=== PATIENT | female | born 1945 ===

== ENCOUNTER → 2020-03-12 14:45 | Outpatient (CLI) | payer MEDICARE, SELFPAY ==
--- NOTE | ~2020-03-12 | XR_ITS ---
EXAMINATION: XR forearm LT 2V DATE: 03/12/2020 15:18 INDICATION: Left wrist pain and swelling. TECHNIQUE: 2 views of left forearm were obtained. COMPARISON: None. FINDINGS: Bone alignment is normal. No fracture. There is mild osteoarthritis of triscaphe joint and moderate osteoarthritis of first carpometacarpal joint. No elbow joint effusion. IMPRESSION: 1. No fracture. Reviewed, dictated and finalized at location B. MECHANIC IMPRESSION: 1. No fracture.
--- NOTE | ~2020-03-12 | XR_ITS ---
EXAMINATION: XR wrist LT min 3V DATE: 03/12/2020 15:17 INDICATION: Left wrist pain and swelling. TECHNIQUE: 4 views of left wrist were obtained. COMPARISON: None. FINDINGS: Bone alignment is normal. No fracture. There is mild osteoarthritis of the radiocarpal join ts and triscaphe joint and moderate osteoarthritis of first carpometacarpal joint. IMPRESSION: 1. Polyarticular osteoarthritis. Reviewed, dictated and finalized at location B. BUYER
== END ==
PROVIDERS: PCP Internal Medicine; Visit Provider Internal Medicine
DX: M19.032 Primary osteoarthritis, left wrist (principal)
CPT/HCPCS: 73090; 73110

== ENCOUNTER 2021-02-20 16:08 | Inpatient (IN) | payer MEDICARE, SELFPAY ==
[2021-02-20] VITALS (27 sets, daily range): BP systolic 129–153; BP diastolic 50–95; PULSE 72–100; RESP 15–26; TEMP 36.3–36.5; O2SAT 91–100
--- NOTE | ~2021-02-20 | CT_ITS ---
EXAMINATION: CTA BRAIN/CAROTID DATE: 02/20/2021 19:32 INDICATION: Falls. Altered mental status. Confusion. TECHNIQUE: Computed tomographic angiography (CTA) of the head and neck was performed with 100 mL Omni paque-350 intravenous contrast. Multiplanar reconstructions and maximum intensity projection 3D-recon structions of the carotid arteries and of the intracranial arteries were created by the technologist on a separate workstation. Precontrast CT of the head was also obtained. Automated exposure control and iterative reconstruction technique were employed.The dose-length product was 1596.59 mGy-cm. COMPARISON: None. FINDINGS: Carotid arteries: There is 30% stenosis of the right carotid bulb relative to normal distal artery lumen diameter (NASC ET criteria). There is 35% stenosis of the left carotid bulb relative to normal distal artery lumen d iameter. Both the left and right cervical internal carotid arteries are tortuous. Right vertebral art he is dominant. Cervical soft tissues and superior mediastinum are unremarkable. Visual is airway an d upper lungs are clear. Mild cervical spondylosis with moderate to severe facet osteoarthritis on th e left including posterior fusion at C4-C5 and mild to moderate right-sided cervical facet osteoarthr itis. Vertebral body heights are normal. No fractures. Head: No fracture. No acute intracranial hemorrhage, acute infarction or abnormal extra axial fluid collect ion. Small old lacunar infarct left frontal lobe rojas radiata along side the body of the caudate nu cleus. There is moderate scattered white matter hypoattenuation consistent with chronic small vessel ischemic disease. Ventricles are normal and symmetric. No mass/mass effect. The orbits, paranasal si nuses and mastoid air cells are normal. No abnormally enhancing brain lesions identified. Intracranial arteries There is prominent motion artifact at the level of the third ventricle, above the level of the [place] which significantly limits assessment for aneurysm or stenosis in many of the more periphe ral cerebral arteries . Atherosclerotic calcifications without significant stenosis at the bilateral carotid siphons and at the dominant intracranial right vertebral artery. There is no hemodynamically significant stenosis in the vertebral, basilar and internal carotid arteries. There are no aneurysms identified. Both A1 and P1 segments are patent. IMPRESSION: 1. 30% stenosis of the right carotid bulb relative to normal distal artery lumen diameter (NASCET cri teria). 2. 35% stenosis of the left carotid bulb relative to normal distal artery lumen diameter. 3. No fracture or acute intracranial process. 4. Mild nonhemodynamically significant atherosclerotic plaque at the intracranial right vertebral art he and bilateral carotid siphons. Otherwise unremarkable cerebral CT angiogram aside from significan t motion artifact above level of the [place] which doesn't significantly limit evaluation of the more peripheral cerebral arteries at this level. Reviewed, dictated and finalized at location A. ROUTE CONTROLLER IMPRESSION: 1. 30% stenosis of the right carotid bulb relative to normal distal artery lume n diameter (NASCET criteria). 2. 35% stenosis of the left carotid bulb relative to normal distal artery lumen diameter. 3. No fracture or acute intracranial process. 4. Mild nonhemodynamically significant atherosclerotic plaque at the intracrani al right vertebral artery and bilateral carotid siphons. Otherwise unremarkable cerebral CT angiogram aside from significant motion artifact above level of th e [place] which doesn't significantly limit evaluation of the more per ipheral cerebral arteries at this level.
--- NOTE | ~2021-02-20 | MR_ITS ---
EXAMINATION: MR brain/brain stem wo con DATE: 02/21/2021 12:33 INDICATION: Confusion. TECHNIQUE: Magnetic resonance imaging (MRI) of the brain and brainstem was performed without intraven ous contrast. Sequences included sagittal and axial T1-weighted FSE, axial diffusion-weighted FS EPI, axial T2*-weighted GRE, axial T2-weighted FLAIR Propeller, and axial T2-weighted Propeller. Apparent diffusion coefficient (ADC) maps were created. COMPARISON: Brain MRI 10/13/2011, head CT 02/20/2021 FINDINGS: There is an acute infarct involving the right basal ganglia and internal capsule. There are old infarcts involving the left basal ganglia and internal capsule. There are scattered areas of non specific increased T2-weighted signal intensity in the cerebral white matter and corby. There is no in tracranial hemorrhage or abnormal mass lesion. The ventricles are normal in size. The orbits are norm al. There is mild mucosal thickening in the ethmoid sinuses. The mastoid air cells are normal. IMPRESSION: 1. Acute infarct involving the right basal ganglia and right internal capsule. 2. Old infarcts involving the left basal ganglia and left internal capsule. 3. Extensive nonspecific cerebral white matter disease and pontine disease, which likely represents c hronic small vessel ischemic disease. Reviewed, dictated and finalized at location B. SUPERVISOR IMPRESSION: 1. Acute infarct involving the right basal ganglia and right internal capsule. 2. Old infarcts involving the left basal ganglia and left internal capsule. 3. Extensive nonspecific cerebral white matter disease and pontine disease, whi ch likely represents chronic small vessel ischemic disease.
--- NOTE | ~2021-02-20 | XR_ITS ---
EXAMINATION: XR chest 1V portable DATE: 02/20/2021 18:25 INDICATION: Shortness of breath TECHNIQUE: frontal view of the chest was obtained. COMPARISON: None FINDINGS: The lungs are clear with no focal airspace opacities, pulmonary edema, pleural effusion or pneumothor ax. The cardiomediastinal silhouette is normal. There are bridging osteophytes at multiple levels in the spine, consistent with diffuse idiopathic skeletal hyperostosis (DISH). IMPRESSION: 1. No acute cardiopulmonary disease. Reviewed, dictated and finalized at location A. PRESSER
--- NOTE | ~2021-02-20 | US_ITS ---
EXAMINATION: US carotid duplex BI DATE: 02/22/2021 13:38 INDICATION: Stroke TECHNIQUE: Grayscale, color Doppler, and pulsed Doppler images of the cervical carotid arteries were obtained. The degree of vessel stenosis is placed in one of the following categories: normal, <50%, 5 0-69%, >=70% but less than near-occlusion, near-occlusion, or total occlusion. Note that percent sten osis relative to normal distal artery lumen diameter is indirectly measured from velocity measurement s as described by Tono, et al. Radiology 2003; 229:340-346. COMPARISON: Carotid CT angiogram dated 02/20/2021 FINDINGS: RIGHT: The right common carotid artery (CCA) peak systolic velocity (PSV) is 68 cm/s. The right internal car otid artery (ICA) PSV is 62 cm/s. The right ICA end-diastolic velocity (EDV) is 15 cm/s. The right IC A/CCA PSV ratio is 0.9. Grayscale and color Doppler images yield an estimate of <50% diameter reducti on from plaque in the ICA. The external carotid artery (ECA) PSV is 104 cm/s. There is antegrade flow in the right vertebral artery. LEFT: The left CCA PSV is 77 cm/s. The left ICA PSV is 70 cm/s. The left ICA EDV is 14 cm/s. The left ICA/C CA PSV ratio is 0.9. Grayscale and color Doppler images yield an estimate of <50% diameter reduction from plaque in the ICA. The ECA PSV is 100 cm/s. There is antegrade flow in the left vertebral artery . IMPRESSION: 1. <50% stenosis in the right internal carotid artery. 2. <50% stenosis in the left internal carotid artery. Reviewed, dictated and finalized at location A. O TELEVISION TECHNICAL DIRECTOR
--- NOTE | ~2021-02-20 | CT_ITS ---
EXAMINATION: CT lumbar spine wo con DATE: 02/20/2021 20:40 INDICATION: Multiple falls. Abnormal gait. Unable to walk. TECHNIQUE: Computed tomography (CT) of the lumbar spine, sacrum and coccyx was performed without intr avenous contrast. Automated exposure control and iterative reconstruction technique were employed. Th e dose-length product was 1258.73 mGy-cm. COMPARISON: Lumbar spine MR dated 07/26/2016 FINDINGS: Alignment is normal. Vertebral body heights are normal. No fractures identified. Mild disc height los s at L3-L4. Mild to moderate bilateral sacroiliac osteoarthritis. There is some contrast opacificatio n of the kidneys with excreted contrast in the bilateral renal collecting systems, visualized portion s of the ureters and in the bladder related to the earlier contrast-enhanced CT angiogram of the head and neck. There is calcified atherosclerosis of the normal caliber abdominal aorta and bilateral gifty ac arteries. Moderate diverticulosis along the visualized sigmoid colon. Bilateral renal cysts, the l arger on the right measuring 1.4 cm. Paravertebral soft tissues are unremarkable. The following disc levels are specifically discussed: T12-L1: Disc is mildly bulging. There is mild bilateral facet joint osteoarthritis. There is no neura l foraminal stenosis. There is mild central canal stenosis. L1-L2: Disc is bulging. There is mild bilateral facet joint osteoarthritis. There is mild right and m oderate left neural foraminal stenosis. There is mild central canal stenosis. L2-L3: Disc is minimally bulging. There is mild bilateral facet joint osteoarthritis. There is mild b ilateral neural foraminal stenosis. There is no central canal stenosis. L3-L4: Disc is mildly bulging. There is moderate bilateral facet joint osteoarthritis. There is mild bilateral neural foraminal stenosis. There is mild central canal stenosis. L4-L5: Disc is bulging. There is moderate right and mild left facet joint osteoarthritis. There is mo derate bilateral neural foraminal stenosis. There is moderate central canal stenosis. L5-S1: Disc is mildly bulging. There is severe bilateral facet joint osteoarthritis. There is mild le ft and mild to moderate right neural foraminal stenosis. There is no central canal stenosis. IMPRESSION: 1. Mild to moderate lumbar spondylosis. No acute osseous abnormality. Reviewed, dictated and finalized at location A. ICAL DEPENDENCY NURSE
[2021-02-20 18:41] LABS: Basophils Absolute Auto 0.1 K/mm3 (0.0-0.1); Basophils Percent Auto 0.4 % (0.2-1.2); Eosinophils Absolute Auto 0.2 K/mm3 (0-0.3); Eosinophils Percent Auto 1.3 % (0-4.4); Hematocrit 36.7 % (37.0-47.0); Hemoglobin 11.9 g/dL (12.0-15.0); Immature Granulocyte Absolute 0.04 K/mm3 (0.00-0.031); Immature Granulocyte Percent A 0.3 % (0-0.5); Lymphocytes Absolute Auto 1.88 K/mm3 (0.9-3.2); Lymphocytes Percent Auto 15.6 % (18.3-44.2); Mean Corpuscular HGB Conc 32.4 g/dl (32-36); Mean Corpuscular Hemoglobin 29.5 pg (26-34); Mean Corpuscular Volume 90.8 fl (80-100); Mean Platelet Volume 10.8 fl (7.4-10.4); Monocytes Absolute Auto 0.8 K/mm3 (0.1-0.6); Monocytes Percent Auto 6.8 % (2.6-8.5); Neutrophils Absolute Auto 9.1 K/mm3 (1.3-6.7); Neutrophils Percent Auto 75.6 % (45.5-73.1); Platelet Count Result 275 k/mm3 (150-375); Red Blood Count 4.04 M/mm3 (4.2-5.4); Red Cell Distribution Width 13.3 % (11.5-14.5); White Blood Count 12.1 K/mm3 (4.5-10.0)
[2021-02-20 18:52] LABS: Alanine Aminotransferase 16 U/L (4-35); Albumin Level 3.9 g/dL (3.5-5.1); Alkaline Phosphatase 61 U/L (38-126); Anion Gap 7 mmol/L (8-16); Aspartate Amino Transferase 22 U/L (14-36); Bilirubin,Total 1.1 mg/dL (0.2-1.3); Blood Urea Nitrogen 16 mg/dL (7-17); Calcium 10.9 mg/dL (8.4-10.2); Carbon Dioxide 26 mmol/L (22-30); Chloride 101 mmol/L (98-107); Estimated CRCL calculation 38 ml/min; Estimated Glomerular Filt Rate 48; Glucose 167 mg/dL (65-110); Potassium 3.7 mmol/L (3.4-5.0); Sodium 134 mmol/L (137-145)
[2021-02-20 18:53] LABS: Prothrombin Time 12.9 Seconds (11.1-14.7)
[2021-02-20 18:54] LABS: Partial Thromboplastin Time 28.2 SECONDS (22.3-36.8)
[2021-02-20 19:03] LABS: Troponin I < 0.012 ng/mL (0.000-0.034)
--- NOTE | 2021-02-20 20:11 | ECG_ITS ---
Measurements Intervals [place] Rate: 82 P: 51 SC: 141 QRS: 18 QRSD: 100 T: 24 QT: 400 QTc: 470 Interpretive Statements SINUS RHYTHM HIGH LATERAL INFARCT, AGE INDETERMINATE CONSIDER ANTEROLATERAL INFARCT, AGE INDETERMINATE BASELINE ARTIFACT- II, III, V3 ABNORMAL ECG Electronically Signed On 02-20-2021 20:28:55 CDC ASSOCIATE by Tristin Barrett D.O.
--- NOTE | 2021-02-20 20:11 | ED.FALL ---
HPI - Fall General Chief Complaint: Fall Stated Complaint: FALL/HIT HEAD Time Seen by Provider: 02/20/21 17:47 Source: family Mode of arrival: ambulatory Limitations: other (asleep) History of Present Illness HPI Narrative: 75 year old female with PMH HTN, diabetes and sleep apnea with history of small CVA in the past, brought in by daughter who lives with her for multiple falls. States her mother has been unsteady on her feet all day and after multiple falls took her to [facility] twice where she was diagnosed with a yeast infection and given diflucan. Last discharged from [facility] at 330am this morning and patient rolled out of bed at home after discharge and hit her head. Daughter states mother's BP is usually 120/80 and it has been higher over the past day. States mother has a history of falls in the past, but has fallen multiple times over the past day because she can't walk . Related Data Home Medications Medication Instructions Recorded Confirmed aspirin 81 mg tablet,delayed 81 mg PO EVERY OTHER DAY 02/12/19 03/05/21 release citalopram 20 mg tablet 20 mg PO DAILY 02/12/19 03/05/21 lisinopril 20 mg tablet 20 mg PO DAILY 02/12/19 03/05/21 metformin 500 mg tablet 500 mg PO EVERY OTHER DAY 02/12/19 03/05/21 sodium bicarbonate 650 mg tablet 650 mg PO BID 02/12/19 03/05/21 Ferrex 150 Plus 1 cap PO DAILY 02/20/21 03/05/21 ketoconazole 1 applic TOPICAL BID 02/20/21 03/05/21 triamcinolone acetonide 1 applic TOPICAL BID 02/20/21 03/05/21 Allergies Allergy/AdvReac Type Severity Reaction Status Date / Time latex Allergy Unknown rash Verified 03/07/21 12:48 Review of Systems Review of Systems: ROS unobtainable: Yes other (dementia) PMFSH Past Medical History Medical History Anorexia Diabetes mellitus History of CVA (cerebrovascular accident) Hypercalcemia Obstructive sleep apnea (adult) (pediatric) Recurrent falls Stroke Family History Family History Father Cerebrovascular accident Mother Heart disease Other Asthma Social History Social History Smoking status: Never smoker Alcohol intake: never Substance use: never Substance use type: does not use Spiritual care concerns: No Exam Narrative: General: alert, afebrile, won't answer questions Head: normocephalic, atraumatic Eyes: EOMI bilaterally, anicteric, no injection ENT: dry mucous membranes, oropharynx patent, no rhinorrhea Neck: supple, trachea midline, no JVD Chest: equal chest rise bilaterally, no chest wall trauma noted Lungs: clear to auscultation bilaterally, respirations unlabored CV: regular rate, no BELEN B, calf size equal bilaterally Abd: soft, non-distended, non-tender, no rebound, no gaurding Back: no lumbar bony tenderness. paraspinal muscles without spasm EXT: no deformity noted, moving all extremities equally Skin: warm, dry, no pallor Neuro: alert, refusing to answer questions CN 2-12 grossly intact, no dysarthria; DTR 3+ patellar B Psych: affect appropriate, though content normal Course Vital Signs Vital signs: Vital Signs Temperature 36.3 C L 02/20/21 16:17 Pulse Rate 97 02/20/21 16:17 Respiratory Rate 18 02/20/21 16:17 Blood Pressure 131/73 02/20/21 16:17 Pulse Oximetry 98 02/20/21 16:17 Temperature 36.6 C 02/23/21 05:31 Pulse Rate 78 02/23/21 09:03 Respiratory Rate 20 02/23/21 05:31 Blood Pressure 156/109 H 02/23/21 05:31 Pulse Oximetry 98 02/23/21 05:31 MDM - Fall MDM Narrative Medical decision making narrative: 75-year-old female arrives with family for her third ER visit for inability to amblulate with immediate falls s/p discharge. Patient alert and oriented x 3; daughter does most of the talking, states mother does not wish to talk since she does not have her dentures with her. Patient states she does not
[2021-02-20 20:24] LABS: Add Urine Microscopic? YES; Appearance Urine Clear (Clear); Bilirubin Urine Negative (Negative); Blood Urine Negative (Negative); Color Urine Yellow (Yellow); Glucose Urine UA Negative (Negative); Ketones Urine Negative (Negative); Leukocyte Esterase Ur Negative LEU/UL (Negative); Mucus Urine Rare /lpf; Nitrate Urine Negative (Negative); Protein Urine Negative (Negative); Squamous Epithelial Cell Urine Occasional /hpf (Few); WBC Urine 0-3 /hpf
[2021-02-20 20:42] LABS: Amphetamine Screen Urine Negative (Negative); Barbiturate Screen Urine Negative (Negative); Benzodiazepines Screen Urine Negative (Negative); Cannabinoid Screen Urine Negative (Negative); Cocaine Screen Urine Negative (Negative); Methadone Screen Urine Negative (Negative); Opiate Screen Urine Negative (Negative); Phencyclidine Screen Urine Negative (Negative)
[2021-02-20 20:50] LABS: Specific Grav Ur 1.032 (1.001-1.035)
--- NOTE | 2021-02-20 21:53 | PC.NURSE ---
Pt assisted with RN, tech, and walker. Unable to ambulate. Pt is difficult to redirect, speaking and conversing appropriately but regularly closed eyes. Was able to sit on the side of the bed but unable to stand or walk without assistance. Attempted for 20 minutes without success. MD aware.
--- NOTE | 2021-02-20 23:00 | PC.NURSE ---
Assuming care of pt.
[2021-02-21] VITALS (7 sets, daily range): BP systolic 148–157; BP diastolic 81–119; PULSE 69–88; RESP 16–20; TEMP 35.7–36.9; O2SAT 96–100; BMI 33.8
--- NOTE | 2021-02-21 00:56 | PM.IMHP ---
H&P: HPI History of Present Illness Date/Time: 02/21/21 00:56 Chief Complaint: Recurrent falls Narrative: 75 year old female with PMH of HTN, diabetes and sleep apnea and history of mini CVA brought in by daughter who lives with her for multiple falls that started since yesterday. She states that she was unsteady on her feet all day and multiple falls for which she was taken to the [address] [place] [address] where workup was unremarkable as was discharged. She got home at 3:30 a.m. this morning. The daughter noted that she she had fallen again when she went to her room and hit her head which she is not sure which part and hence brought to the ER here for evaluation. Has not had any fever chills or shortness of breath or chest pain. She has been wobbly in her feet and seemed to be dragging her left side per her daughter. She is also more sleepy than usual she states she has sleep apnea and has been on CPAP however for CPAP machine has recently been recall for on hands has not been using her CPAP.. Review of Systems Review of Systems: - CONSTITUTIONAL: Denies weight loss, fever and chills. - HEENT: Denies changes in vision and hearing - RESPIRATORY: Denies SOB and cough. - CV: Denies palpitations and CP. - GI: Denies abdominal pain, nausea, vomiting and diarrhea. - : Denies dysuria and urinary frequency. - MSK: Denies myalgia and joint pain. - SKIN: Denies rash and pruritus. - NEUROLOGICAL: Denies headache and reports recurrent falls - PSYCHIATRIC: Denies recent changes in mood. Denies anxiety and depression. All systems reviewed & are unremarkable except as noted in HPI and below Constitutional: Constitutional: Reports fatigue and Reports weakness Neurologic: Reports weakness Endocrine: Endocrine: Reports fatigue [facility] Family History Family History Father Cerebrovascular accident Mother Heart disease Other Asthma Social History Social History Smoking status: Never smoker Alcohol intake: never Substance use: never Substance use type: does not use Meds Home Medications and Allergies Home Medications Medication Instructions Recorded Confirmed Type aspirin 81 mg tablet,delayed 81 mg PO EVERY OTHER DAY 02/12/19 09/20/20 History release atorvastatin 20 mg tablet 20 mg PO DAILY 02/12/19 09/20/20 History citalopram 20 mg tablet 20 mg PO DAILY 02/12/19 09/20/20 History lisinopril 20 mg tablet 20 mg PO DAILY 02/12/19 09/20/20 History lorazepam 0.5 mg tablet 0.5 mg PO PRN PRN 02/12/19 09/20/20 History metformin 500 mg tablet 500 mg PO EVERY OTHER DAY 02/12/19 09/20/20 History metoprolol tartrate 25 mg tablet 25 mg PO DAILY 02/12/19 09/20/20 History sodium bicarbonate 650 mg tablet 650 mg PO BID 02/12/19 09/20/20 History iron aspgl,ps complex-vit C-sa cap PO 02/20/21 History [Ferrex 150 Plus] ketoconazole applic TOPICAL 02/20/21 02/20/21 History triamcinolone acetonide applic TOPICAL 02/20/21 History Allergies Allergy/AdvReac Type Severity Reaction Status Date / Time latex Allergy Unknown rash Verified 02/20/21 18:07 Vital Signs Vital Signs - 24 hr 02/20/21 16:17 02/20/21 17:44 02/20/21 17:45 Temperature 97.4 F L Pulse Rate 97 98 100 Respiratory Rate 18 17 20 Blood Pressure 131/73 Pulse Oximetry 98 93 98 02/20/21 17:46 02/20/21 17:58 02/20/21 18:00 Temperature 97.7 F Pulse Rate 82 77 93 Respiratory Rate 22 H 20 16 Blood Pressure 153/95 H 153/95 H Pulse Oximetry 99 100 91 02/20/21 18:01 02/20/21 18:28 02/20/21 18:30 Temperature Pulse Rate 73 75 75 Respiratory Rate 21 H 19 20 Blood Pressure 144/70 H Pulse Oximetry 02/20/21 18:36 02/20/21 18:46 02/20/21 19:22 Temperature Pulse Rate 80 94 92 Respiratory Rate 16 15 23 H Blood Pressure 146/76 H Pulse Oximetry 99 02/20/21 19:38 02/20/21 19:47 02/20/21 20:00 Temperature Pul
[2021-02-21 01:34] LABS: Alveolar/Arterial O2 Gradient 18.8 mmHg; Base Excess ABG 2.2 mEq/l (+/-2.0); Fractional Inspired Oxygen 21 %; HCO3 ABG 27.3 mEq/l (22.0-26.0); Oxygen Content ABG 17.4 %vol (16.0-22.0); Oxygen Saturation ABG 95.5 % (95.0-100.0); Oxyhemoglobin 94.9 % THb (90.0-100.0); PCO2 ABG 44.4 mmHg (35.0-45.0); PO2 ABG 77.8 mmHg (80.0-100.0); pH ABG 7.407 (7.350-7.450)
[2021-02-21 01:35] LABS: Device ROOM AIR; Modified Allen's Test Pass; Site Drawn LEFT RADIAL
--- NOTE | 2021-02-21 01:43 | ADMGEN ---
This patient, Thuy Glover, was admitted to [facility] Surg Room 324-02. Patient/family oriented to hospital policies and general routines including ID bracelet, bed and alarms, visiting hours, pain management, procedures, bathroom and other care routines, personal items, smoking policy, room service/diet, and visiting hours. Information on how to activate the Rapid Response Team has been discussed. Patient/Family are encouraged to report perceived risks to care and to ask questions if they do not understand what they are told or what they should do.
[2021-02-21] MEDS: SODIUM CHLORIDE 0.9% IV 1,000 ML 60 ML IV CONT ×2 (02:19→21:38)
[2021-02-21 06:01] LABS: Basophils Absolute Auto 0.1 K/mm3 (0.0-0.1); Basophils Percent Auto 0.7 % (0.2-1.2); Eosinophils Absolute Auto 0.2 K/mm3 (0-0.3); Eosinophils Percent Auto 2.1 % (0-4.4); Hematocrit 36.9 % (37.0-47.0); Hemoglobin 12.1 g/dL (12.0-15.0); Immature Granulocyte Absolute 0.03 K/mm3 (0.00-0.031); Immature Granulocyte Percent A 0.3 % (0-0.5); Lymphocytes Absolute Auto 2.26 K/mm3 (0.9-3.2); Mean Corpuscular HGB Conc 32.8 g/dl (32-36); Mean Corpuscular Hemoglobin 29.7 pg (26-34); Mean Corpuscular Volume 90.7 fl (80-100); Monocytes Absolute Auto 0.7 K/mm3 (0.1-0.6); Monocytes Percent Auto 7.3 % (2.6-8.5); Neutrophils Absolute Auto 5.8 K/mm3 (1.3-6.7); Neutrophils Percent Auto 64.6 % (45.5-73.1); Platelet Count Result 276 k/mm3 (150-375); Red Blood Count 4.07 M/mm3 (4.2-5.4); Red Cell Distribution Width 13.2 % (11.5-14.5)
[2021-02-21 06:18] LABS: Anion Gap 5 mmol/L (8-16); Blood Urea Nitrogen 13 mg/dL (7-17); Calcium 11.2 mg/dL (8.4-10.2); Carbon Dioxide 28 mmol/L (22-30); Chloride 103 mmol/L (98-107); Estimated Glomerular Filt Rate 54; Glucose 134 mg/dL (65-110); Potassium 3.6 mmol/L (3.4-5.0); Sodium 136 mmol/L (137-145)
[2021-02-21 08:34] LABS: Glucose Point of Care 110 mg/dl (65-105)
[2021-02-21] MEDS: ENOXAPARIN 40 MG/0.4 ML SYRINGE SUB-Q (09:19)
--- NOTE | 2021-02-21 09:48 | PCOTNOTE ---
Attempted to evaluated, pt. sleeping in bed, unable to be roused, will attempt again later.
[2021-02-21 11:17] LABS: Glucose Point of Care 99 mg/dl (65-105)
--- NOTE | 2021-02-21 13:49 | PCPTNOTE ---
Attempted PT evaluation x2 this date, in PM getting EEG, will attempt at later time.
--- NOTE | 2021-02-21 14:41 | PM.IMPN ---
Progress Note: A&P Assessment and Plan (1) Acute ischemic stroke: Code(s): I63.9 - Cerebral infarction, unspecified Status: Acute Assessment and Plan: -acute infarct involving the right basal ganglia and right internal capsule -Per uptodate will give dose of plavix 300 mg followed by 75 daily, stroke scale <5 -increased home dose of atorvastatin to 40 mg daily -discontinued aspirin -BP meds held -consult placed to neurology Dr. Jensen, appreciate his recommendations (2) Altered mental status: Code(s): R41.82 - Altered mental status, unspecified Status: Acute Assessment and Plan: -Likely secondary to above -Improving -CXR negative, UA negative, no fever, no signs of infection at this time. Did have mild leukocytosis on presentation yesterday but it has normalized today. (3) Recurrent falls: Code(s): R29.6 - Repeated falls Status: Acute Assessment and Plan: -Likely secondary to above -PT/OT (4) Hypertension: Code(s): I10 - Essential (primary) hypertension Status: Acute Assessment and Plan: -BP meds held at this time due to acute stroke as above -stable at this time -permissive HTN up to 180 systolic (5) Diabetes: Code(s): E11.9 - Type 2 diabetes mellitus without complications Status: Acute Assessment and Plan: -metformin held -will initiate low dose SSI and hypoglycemic protocol -check A1c (6) Obstructive sleep apnea (adult) (pediatric): Code(s): G47.33 - Obstructive sleep apnea (adult) (pediatric) Status: Acute Assessment and Plan: -CPAP available for use overnight however pt states she has not been using it for a couple of months -ABG w/ ph of 7.407, CO2 44.4, O2 77.8, HCO3 27.3, no hypercapnia Subjective Date/time seen: 02/21/21 14:41 Interval history: 75 yo female w/ hx of CVA, HTN, DM, JOSE, admitted to the hospital for recurrent falls. Today patient is alert and oriented to self and year. She does not know where she is at and does not remember coming to the hospital. She does admit that she thinks she is here because she has been falling recently. She has no pain anywhere and denies any specific complaints. Review of Systems Review of Systems: ROS unobtainable: Yes unobtainable due to mental status Exam Narrative: General: Alert, NAD, non toxic appearing Head: normocephalic, atraumatic Eyes: EOMI bilaterally, anicteric, no injection ENT: dry mucous membranes, oropharynx patent, no rhinorrhea Neck: supple, trachea midline, no JVD Lungs: clear to auscultation bilaterally, respirations unlabored CV: regular rate, and rhythm Abd: soft, non-distended, nontender, no rebound, no guarding Back: no lumbar bony tenderness. EXT: no edema, moving all extremities equally Skin: warm, dry, no pallor Neuro: Alert to person and year. CN 2-12 grossly intact, no dysarthria; strength equal upper extremity and lower extremity bilaterally Psych: confused Objective Data Vital Signs Vital Signs: Vital Signs - 24 hr 02/20/21 16:17 02/20/21 17:44 02/20/21 17:45 Temperature 97.4 F L Pulse Rate 97 98 100 Respiratory Rate 18 17 20 Blood Pressure 131/73 Pulse Oximetry 98 93 98 02/20/21 17:46 02/20/21 17:58 02/20/21 18:00 Temperature 97.7 F Pulse Rate 82 77 93 Respiratory Rate 22 H 20 16 Blood Pressure 153/95 H 153/95 H Pulse Oximetry 99 100 91 02/20/21 18:01 02/20/21 18:28 02/20/21 18:30 Temperature Pulse Rate 73 75 75 Respiratory Rate 21 H 19 20 Blood Pressure 144/70 H Pulse Oximetry 02/20/21 18:36 02/20/21 18:46 02/20/21 19:22 Temperature Pulse Rate 80 94 92 Respiratory Rate 16 15 23 H Blood Pressure 146/76 H Pulse Oximetry 99 02/20/21 19:38 02/20/21 19:47 02/20/21 20:00 Temperature Pulse Rate 84 87 84 Respiratory Rate 21 H 20 21 H Blood Pressure 129/50 L Pulse Oximetry 02/20/21 20:15 02/20/21
--- NOTE | 2021-02-21 15:17 | WPDNEURCNPN ---
Assessment and Plan Additional Plan multi-infarct dementia subcortical bilateral Consult date: 03/07/21 HPI: Thuy Glover is a 75 year old female admitted to the hospital for the complaints of recurrent falls in addition to history of 1. Hypertension 2. Diabetes mellitus 3. Sleep apnea 4. Cerebrovascular accident in the past reportedly she had been unsteady on her feet all day and has had multiple falls was initially evaluated in other institution where all the evaluation was negative but she went home and fell again hence brought to the ER here without history of any associated general symptomatology though she was noted to have wobbliness and dragging her left side, past history are consistent with no smoking no drinking taking aspirin atorvastatin 20 mg daily lisinopril 20 mg daily metformin 500 mg every other day and metoprolol 25 mg daily, evaluation up until known documented, MRI with acute infarct involving the right basal ganglia and internal capsule in addition to old infarct involving the left basal ganglia and left internal capsule, CT of the lumbar spine documenting mild to moderate lumbar spondylosis with only mild central canal stenosis at from T12- L4 but moderate central canal stenosis at L4 and 5, head neck CTA documented 30% stenosis of the right internal carotid and 35% stenosis left carotid bulb in addition to atherosclerotic plaque at the intracranial right vertebral artery and bilateral carotid siphons Review of Systems Review of Systems: All systems reviewed & are unremarkable except as noted in HPI and below PMFSH Past Medical History Medical History Anorexia Diabetes mellitus History of CVA (cerebrovascular accident) Hypercalcemia Obstructive sleep apnea (adult) (pediatric) Recurrent falls Stroke Family History Family History Father Cerebrovascular accident Mother Heart disease Other Asthma Social History Social History Smoking status: Never smoker Alcohol intake: never Substance use: never Substance use type: does not use Spiritual care concerns: No Meds Home Medications and Allergies Home Medications Medication Instructions Recorded Confirmed Type aspirin 81 mg tablet,delayed 81 mg PO EVERY OTHER DAY 02/12/19 03/05/21 History release citalopram 20 mg tablet 20 mg PO DAILY 02/12/19 03/05/21 History lisinopril 20 mg tablet 20 mg PO DAILY 02/12/19 03/05/21 History metformin 500 mg tablet 500 mg PO EVERY OTHER DAY 02/12/19 03/05/21 History metoprolol tartrate 25 mg tablet 25 mg PO DAILY 02/12/19 03/05/21 History sodium bicarbonate 650 mg tablet 650 mg PO BID 02/12/19 03/05/21 History Ferrex 150 Plus 1 cap PO DAILY 02/20/21 03/05/21 History ketoconazole 1 applic TOPICAL BID 02/20/21 03/05/21 History triamcinolone acetonide 1 applic TOPICAL BID 02/20/21 03/05/21 History atorvastatin 40 mg PO DAILY #30 tablet 02/23/21 03/05/21 Rx clopidogrel 75 mg PO QAM #30 tablet 02/23/21 03/05/21 Rx lorazepam 0.5 mg PO PRN PRN #20 tablet 02/23/21 03/05/21 Rx Allergies Allergy/AdvReac Type Severity Reaction Status Date / Time latex Allergy Unknown rash Verified 02/20/21 18:07 Vital Signs Vital Signs - 24 hr 02/20/21 16:17 02/20/21 17:44 02/20/21 17:45 Temperature 36.3 C L Pulse Rate 97 98 100 Respiratory Rate 18 17 20 Blood Pressure 131/73 Pulse Oximetry 98 93 98 02/20/21 17:46 02/20/21 17:58 02/20/21 18:00 Temperature 36.5 C Pulse Rate 82 77 93 Respiratory Rate 22 H 20 16 Blood Pressure 153/95 H 153/95 H Pulse Oximetry 99 100 91 02/20/21 18:01 02/20/21 18:28 02/20/21 18:30 Temperature Pulse Rate 73 75 75 Respiratory Rate 21 H 19 20 Blood Pressure 144/70 H Pulse Oximetry 02/20/21 18:36 02/20/21 18:46 02/20/21 19:22 Temperature Pulse Rate 80 94 92 Respiratory Rate 16 15 23 H Blood Pressure 146/7
[2021-02-21 16:09] LABS: Glucose Point of Care 112 mg/dl (65-105)
[2021-02-21] MEDS: SODIUM BICARBONATE TAB 650 MG TABLET PO (17:06)
[2021-02-21] MEDS: CLOPIDOGREL BISULFATE 300 MG TABLET PO (17:44)
--- NOTE | 2021-02-21 20:40 | PCRCNOTE ---
S9 was already in pts room. Pts states they have a cpap at home but doesnt typically wear it. They also stated they did not want to wear ours tonight.
[2021-02-21 20:44] LABS: Glucose Point of Care 119 mg/dl (65-105)
[2021-02-21] MEDS: TRIAMCINOLONE ACET 0.1% CREAM 15 GM TUBE 1 APPLIC TOPICAL (21:39)
[2021-02-21] MEDS: MICONAZOLE NITRATE 2% CREAM 30 GM TUBE 1 APPLIC TOPICAL (21:40)
[2021-02-22 05:58] VITALS: BP 149/91; PULSE 92; RESP 12; TEMP 36; O2SAT 97
[2021-02-22 06:58] LABS: Basophils Absolute Auto 0.1 K/mm3 (0.0-0.1); Basophils Percent Auto 0.7 % (0.2-1.2); Eosinophils Absolute Auto 0.4 K/mm3 (0-0.3); Eosinophils Percent Auto 4.3 % (0-4.4); Hematocrit 35.6 % (37.0-47.0); Hemoglobin 11.8 g/dL (12.0-15.0); Immature Granulocyte Absolute 0.02 K/mm3 (0.00-0.031); Immature Granulocyte Percent A 0.2 % (0-0.5); Lymphocytes Percent Auto 24.7 % (18.3-44.2); Mean Corpuscular HGB Conc 33.1 g/dl (32-36); Mean Corpuscular Volume 90.6 fl (80-100); Mean Platelet Volume 10.8 fl (7.4-10.4); Monocytes Absolute Auto 0.6 K/mm3 (0.1-0.6); Monocytes Percent Auto 6.7 % (2.6-8.5); Neutrophils Absolute Auto 5.7 K/mm3 (1.3-6.7); Neutrophils Percent Auto 63.4 % (45.5-73.1); Platelet Count Result 263 k/mm3 (150-375); Red Blood Count 3.93 M/mm3 (4.2-5.4); Red Cell Distribution Width 13.2 % (11.5-14.5); White Blood Count 8.9 K/mm3 (4.5-10.0)
[2021-02-22 07:14] LABS: Anion Gap 5 mmol/L (8-16); Blood Urea Nitrogen 12 mg/dL (7-17); Calcium 10.5 mg/dL (8.4-10.2); Carbon Dioxide 25 mmol/L (22-30); Chloride 103 mmol/L (98-107); Estimated Glomerular Filt Rate 54; Glucose 109 mg/dL (65-110); Potassium 3.4 mmol/L (3.4-5.0); Sodium 133 mmol/L (137-145)
[2021-02-22] MEDS: POLYSACCHARIDE IRON COMPLEX 150 MG CAPSULE PO (08:24)
[2021-02-22] MEDS: CLOPIDOGREL BISULFATE 75 MG TABLET PO (08:24)
[2021-02-22] MEDS: SODIUM BICARBONATE TAB 650 MG TABLET PO ×2 (08:24→17:30)
[2021-02-22] MEDS: ATORVASTATIN 40 MG TABLET PO (08:24)
[2021-02-22] MEDS: MICONAZOLE NITRATE 2% CREAM 30 GM TUBE 1 APPLIC TOPICAL ×2 (08:24→22:13)
[2021-02-22] MEDS: TRIAMCINOLONE ACET 0.1% CREAM 15 GM TUBE 1 APPLIC TOPICAL ×2 (08:24→22:13)
[2021-02-22 09:00] LABS: Glucose Point of Care 90 mg/dl (65-105)
[2021-02-22 09:54] LABS: Hemoglobin A1C 6.5 % (<5.7)
--- NOTE | 2021-02-22 10:47 | P.NEURO_ITS ---
Neurology EEG Report General Information Date of Study: 02/21/21 TEST eeg DIAGNOSIS Confusion CONDITION OF RECORDING drowsy and sleep EEG NUMBER [id number] CLINICAL HISTORY patient slept throughout this setup daughter reported patient is here because she keeps falling. Denies any loss of consciousness. EEG DESCRIPTION Background rhythm consists of low to medium voltage 5 to 7 hertz per 2nd theta admixed with low to medium voltage 3 to 4 hertz per 2nd delta activity superimposed by low-voltage 15 to 18 hertz per 2nd beta photic stimulation not done. Hyperventilation Not done. Non paroxysmal. Nonfocal. Nonlateralizing. IMPRESSION Patient slept throughout the tracing . , considering the age of the patient this tracing could be compatible with organic a metabolic encephalopathy but there is no evidence of any paroxysmal discharge throughout the tracing. Clinical correlation recommended possibility of underlying organic or metabolic encephalopathy or else neuro degenerative process cannot be ruled out
[2021-02-22 12:07] LABS: Vitamin D 25 Hydroxy 41.1 ng/mL
[2021-02-22 12:19] LABS: Glucose Point of Care 112 mg/dl (65-105)
[2021-02-22 14:00] VITALS: BP 158/99; PULSE 115; RESP 20; TEMP 36.3; O2SAT 97
--- NOTE | 2021-02-22 14:57 | PM.IMPN ---
Progress Note: A&P Assessment and Plan (1) Acute ischemic stroke: Code(s): I63.9 - Cerebral infarction, unspecified Status: Acute Assessment and Plan: Acute infarct involving the right basal ganglia and right internal capsule -continue Plavix and atorvastatin -neurology consulted -okay to resume -will restart lisinopril and metoprolol tomorrow morning (will be 48 hours after stroke) (2) Altered mental status: Code(s): R41.82 - Altered mental status, unspecified Status: Acute Assessment and Plan: Appears resolved to me on exam today -we due to above -CXR negative, UA negative, no fever, no signs of infection at this time. Did have mild leukocytosis on presentation but it has normalized today. (3) Recurrent falls: Code(s): R29.6 - Repeated falls Status: Acute Assessment and Plan: -Likely secondary to above -PT/OT (4) Hypertension: Code(s): I10 - Essential (primary) hypertension Status: Acute Assessment and Plan: Allow for permissive HTN up to 180 systolic -restart lisinopril tomorrow morning (5) Diabetes: Code(s): E11.9 - Type 2 diabetes mellitus without complications Status: Acute Assessment and Plan: Last glucose 112 -A1c 6.5 -hold home metformin -continue sliding scale insulin (6) Obstructive sleep apnea (adult) (pediatric): Code(s): G47.33 - Obstructive sleep apnea (adult) (pediatric) Status: Acute Assessment and Plan: -CPAP available for use overnight however pt states she has not been using it for a couple of months (7) Hypercalcemia: Code(s): E83.52 - Hypercalcemia Status: Acute Assessment and Plan: Patient has slight hypercalcemia on labs within normal vitamin-D level -will order PTH tomorrow morning -cancer seems less likely since it is only 10.5 but she will need to be sure she is up-to-date on her routine cancer screenings Time Spent With Patient Time with patient: 25 - 35 minutes Subjective Date/time seen: 02/22/21 14:57 Interval history: Pt is a 75-year-old female here for CVA. Patient was seen today and is alert and oriented but insists that she did not have a stroke and just simply felt. I explained her diagnosis to her at length. She states she has a slight frontal headache but otherwise doing okay. She denies chest pain, shortness of breath, abdominal pain, dysuria, diarrhea or constipation. Review of Systems Review of Systems: All systems reviewed & are unremarkable except as noted in HPI and below Exam Narrative: General: Well developed well nourished patient in NAD HEENT: normocephalic, left eye conjunctival changes Neck: supple Neuro: Alert and oriented x4. Left-sided facial droop. Cranial nerves 2-12 otherwise intact. Equal strength the upper lower extremity 5/5. Able to do rapid alternating movements and [id number] CV: Regular rate and rhythm. Telemetry shows occasional PVCs Resp:CTA Abd: Soft, non distended. No pain to palpation. Positive bowel sounds Extremities: No swelling, erythema, or pain to palpation. Bruise to the right arm Objective Data Vital Signs Vital Signs: Vital Signs - 24 hr 02/21/21 20:39 02/21/21 22:00 02/22/21 05:58 Temperature 97.6 F 96.8 F L Pulse Rate 69 92 Respiratory Rate 18 12 Blood Pressure 152/89 H 149/91 H Pulse Oximetry 96 97 97 02/22/21 14:00 Temperature 97.3 F L Pulse Rate 115 H Respiratory Rate 20 Blood Pressure 158/99 H Pulse Oximetry 97 Intake/Output Intake/Output: Intake & Output 02/19/21 02/20/21 02/21/21 02/22/21 23:59 23:59 23:59 23:59 Intake Total 1222 640 Balance 1222 640 Meds/Results Medications: Active Medications Generic Name Dose Route Start Last Admin Trade Name Freq PRN Reason Stop Dose Admin Acetaminophen 650 mg 02/21/21 14:49 Acetaminophen 325 Mg Tablet PO Q4H PRN Mild Pain (1-3) or Fever
[2021-02-22 16:04] VITALS: BP 116/54; PULSE 82; RESP 16; TEMP 36.3; O2SAT 99
[2021-02-22 16:56] LABS: Glucose Point of Care 111 mg/dl (65-105)
[2021-02-22 20:34] VITALS: BP 120/55; PULSE 100; RESP 18; TEMP 36.6; O2SAT 95
[2021-02-22 22:58] LABS: Glucose Point of Care 129 mg/dl (65-105)
[2021-02-22 23:56] VITALS: O2SAT 96
[2021-02-23 05:31] VITALS: BP 156/109; PULSE 89; RESP 20; TEMP 36.6; O2SAT 98
[2021-02-23 06:52] LABS: Hematocrit 36.2 % (37.0-47.0); Hemoglobin 12.2 g/dL (12.0-15.0); Mean Corpuscular HGB Conc 33.7 g/dl (32-36); Mean Corpuscular Hemoglobin 30.4 pg (26-34); Mean Corpuscular Volume 90.3 fl (80-100); Mean Platelet Volume 10.9 fl (7.4-10.4); Platelet Count Result 284 k/mm3 (150-375); Red Blood Count 4.01 M/mm3 (4.2-5.4); White Blood Count 8.9 K/mm3 (4.5-10.0)
[2021-02-23 07:04] LABS: Alanine Aminotransferase 15 U/L (4-35); Albumin Level 3.5 g/dL (3.5-5.1); Alkaline Phosphatase 59 U/L (38-126); Anion Gap 9 mmol/L (8-16); Aspartate Amino Transferase 23 U/L (14-36); Blood Urea Nitrogen 12 mg/dL (7-17); Calcium 10.8 mg/dL (8.4-10.2); Carbon Dioxide 25 mmol/L (22-30); Chloride 102 mmol/L (98-107); Estimated Glomerular Filt Rate > 60; Glucose 130 mg/dL (65-110); Potassium 3.3 mmol/L (3.4-5.0); Sodium 136 mmol/L (137-145)
[2021-02-23 07:14] LABS: Parathyroid Intact 145.7 pg/mL (7.5-53.5)
[2021-02-23 08:00] LABS: Thyroid Stimulating Hormone Reflex 0.613 uIU/mL (0.465-4.68)
--- NOTE | 2021-02-23 08:20 | PCOTNOTE ---
Attempted to see patient this AM for occupational therapy. Patient very confused stating I just want to get back in my bed, this inst my room and I dont even have a real bed. Pt. not oriented to place or time. Oriented to person. When encouraged to participate in OT and benefits of OT patient stated Please just go away and come back later.
[2021-02-23 08:27] LABS: Glucose Point of Care 108 mg/dl (65-105)
[2021-02-23] MEDS: MICONAZOLE NITRATE 2% CREAM 30 GM TUBE 1 APPLIC TOPICAL (09:01)
[2021-02-23] MEDS: TRIAMCINOLONE ACET 0.1% CREAM 15 GM TUBE 1 APPLIC TOPICAL (09:01)
[2021-02-23] MEDS: POLYSACCHARIDE IRON COMPLEX 150 MG CAPSULE PO (09:02)
[2021-02-23] MEDS: CITALOPRAM HYDROBROMIDE 20 MG TABLET PO (09:02)
[2021-02-23] MEDS: CLOPIDOGREL BISULFATE 75 MG TABLET PO (09:02)
[2021-02-23] MEDS: POTASSIUM CHLORIDE 20 MEQ TABLET PO (09:02)
[2021-02-23] MEDS: ATORVASTATIN 40 MG TABLET PO (09:02)
[2021-02-23 09:03] VITALS: PULSE 78
[2021-02-23] MEDS: METOPROLOL TARTRATE 25 MG TABLET PO (09:03)
[2021-02-23] MEDS: SODIUM BICARBONATE TAB 650 MG TABLET PO (09:03)
[2021-02-23] MEDS: lisinopriL 20 MG TABLET PO (09:03)
[2021-02-23 12:15] LABS: Glucose Point of Care 120 mg/dl (65-105)
--- NOTE | 2021-02-23 12:52 | PM.DS ---
DS: Admitting Diagnosis Discharge Date 02/23/21 Admitting Diagnosis acute cva DS: Discharge Diagnosis Discharge Diagnosis (1) Acute ischemic stroke: Code(s): I63.9 - Cerebral infarction, unspecified Status: Acute Assessment and Plan: Acute infarct involving the right basal ganglia and right internal capsule -continue Plavix, aspirin and atorvastatin. Plan to stop aspirin after 3 weeks -neurology consulted during stay -carotid doppler <50% stenosis -CTA shows 30% stenosis in right carotid bulb and 35% in the left -Would benefit from Holter monitor after discharge. I spoke with pt and daughter about this plan and they are going to f/u with pcp (2) Altered mental status: Code(s): R41.82 - Altered mental status, unspecified Status: Acute Assessment and Plan: Appears resolved to me on exam today but daughter states this comes and goes. She has a hx of hallucinations and since her stroke it has been a bit worse. She also usually sleeps all day and watches TV all night so her nights and days are mixed up. -CXR negative, UA negative, no fever, no signs of infection at this time. Did have mild leukocytosis on presentation but it has normalized at d/c (3) Recurrent falls: Code(s): R29.6 - Repeated falls Status: Acute Assessment and Plan: -Likely secondary to above -PT/OT (4) Hypertension: Code(s): I10 - Essential (primary) hypertension Status: Acute Assessment and Plan: continue home bp medications (5) Diabetes: Code(s): E11.9 - Type 2 diabetes mellitus without complications Status: Acute Assessment and Plan: glucose reviewed day of discharge -A1c 6.5 -continue home regimen (6) Obstructive sleep apnea (adult) (pediatric): Code(s): G47.33 - Obstructive sleep apnea (adult) (pediatric) Status: Acute Assessment and Plan: -CPAP available for use overnight however pt states she has not been using it for a couple of months (7) Hypercalcemia: Code(s): E83.52 - Hypercalcemia Status: Acute Assessment and Plan: Patient has slight hypercalcemia on labs within normal vitamin-D level -PTH elevated, spoke to daughter about f/u with pcp for monitoring. She may need parathyroid u/s etc. -cancer seems less likely since it is only 10.5 but she will need to be sure she is up-to-date on her routine cancer screenings DS: Summary Hospital Course Hospital Course: dos 02/23/21 Patient is a 75-year-old female who presented emergency room on 02/20/2021 for multiple falls and slight confusion. Vitals in the ER were temperature 97.4? F, pulse 97, respiratory rate 18, blood pressure 131/73, pulse ox 98 on room air. CBC showed slight leukocytosis 12.1. BMP with slight abnormalities creatinine 1.1, calcium 10.9. Liver enzymes normal. UA not suggestive of UTI. CT of the head neck showed no acute intracranial process but did show 30-35% stenosis in the carotid arteries. Chest x-ray is negative. Lumbar spine CT showed mild to moderate lumbar spondylosis but no osseous abnormality. She was admitted to the hospitalist service and underwent a brain MRI which did show acute infarct involving the right basal ganglia and the right internal capsule. Neurology was consulted and she was placed on Plavix and she will continue her aspirin for 3 weeks. The plan is to continue dual anti-platelet therapy and then discontinue the aspirin after 3 weeks. I spoke with the patient and daughter about obtaining a Holter monitor at discharge to ensure no paroxysmal atrial fibrillation to be the etiology. The patient did have some hallucinations which could be multifactorial due to the stroke but also she has had this in the past so it could be partially hospital delirium. She was noted to have hypercalcemia during her stay within normal vitamin-D. PTH was drawn which was slightly elevated. With her age, I would recommen
[2021-02-23] MEDS: CYANOCOBALAMIN INJ 1,000 MCG/ML VIAL 1000 MCG IM (13:08)
[2021-02-23 13:56] LABS: EDCOVIDSCREEN Negative (Negative)
[2021-03-02 22:32] LABS: Parathyroid Hormone Related Pr 11 pg/mL (11-20)
== END 2021-02-23 16:15 | DRG 65 ==
LOC: ANHED 23:25 → ANH3MEDSUR 23:59
PROVIDERS: Physician Assistant; Admitting Provider Internal Medicine; Emergency Provider Emergency Medicine; PCP Internal Medicine; Visit Provider Physician Assistant
DX: I63.9 Cerebral infarction, unspecified (principal); R44.2 Other hallucinations; F05 Delirium due to known physiological condition; Z20.822 Contact with and (suspected) exposure to COVID-19; R29.6 Repeated falls; I10 Essential (primary) hypertension; E11.9 Type 2 diabetes mellitus without complications; G47.33 Obstructive sleep apnea (adult) (pediatric); E83.52 Hypercalcemia; D72.829 Elevated white blood cell count, unspecified; F32.A Depression, unspecified; F41.9 Anxiety disorder, unspecified; Z79.82 Long term (current) use of aspirin; Z79.84 Long term (current) use of oral hypoglycemic drugs
CPT/HCPCS: 36415; 36600; 51701; 70496; 70498; 70551; 71045; 72131; 80048; 80053; 80076; 80307; 81001; 82306; 82805; 82948; 83036; 83519; 83970; 84443; 84484; 85025; 85027; 85610; 85730; 87426; 93005; 93880; 95816; 96360; 96361; 96372; 97161; 97166; 97530; 97535; 99285; A9270; C9803; G0378; J1650; J3420; J7030; Q9967

== ENCOUNTER 2021-03-04 18:08 | Inpatient (IN) | payer MEDICARE, SELFPAY ==
[2021-03-04] VITALS (25 sets, daily range): BP systolic 149–174; BP diastolic 62–94; PULSE 75–92; RESP 14–24; O2SAT 97–100
--- NOTE | ~2021-03-04 | CT_ITS ---
EXAMINATION: CT brain wo con DATE: 03/04/2021 19:13 INDICATION: Confusion. Altered mental status. TECHNIQUE: Computed tomography (CT) of the head was performed without intravenous contrast. The mA wa s adjusted according to patient size. Iterative reconstruction technique was employed. The dose-lengt h product was 605.33 mGy-cm. COMPARISON: Head CT 02/20/2021, brain MRI 02/21/2021 FINDINGS: There are scattered areas of low attenuation in the cerebral white matter. There is an infa rct involving the right internal capsule and right basal ganglia. There are old infarcts involving th e left basal ganglia and left internal capsule. There is no intracranial hemorrhage or abnormal mass lesion. The ventricles are normal in size. The paranasal sinuses are clear. The mastoid air cells are normal. IMPRESSION: 1. Infarcts involving the right internal capsule and right basal ganglia again seen, now subacute. 2. Old infarcts involving the left basal ganglia and left internal capsule. 3. Extensive nonspecific cerebral white matter disease, which likely represents chronic small vessel ischemic disease. Reviewed, dictated and finalized at location A. PER GUN OPERATOR
--- NOTE | ~2021-03-04 | XR_ITS ---
EXAMINATION: XR chest 1V portable DATE: 03/04/2021 21:02 INDICATION: Weakness. Transient alteration of awareness. TECHNIQUE: A single frontal view of the chest was obtained. COMPARISON: Chest single view 02/20/2021 FINDINGS: There is no pneumonia, pleural effusion, pneumothorax or cardiomegaly is noted. IMPRESSION: 1. Cardiomegaly. Reviewed, dictated and finalized at location A. IST MANAGER IMPRESSION: 1. Cardiomegaly.
--- NOTE | 2021-03-04 18:38 | ECG_ITS ---
Measurements Intervals [place] Rate: 85 P: 64 [place]: 135 QRS: 47 QRSD: 98 T: -52 QT: 367 QTc: 437 Interpretive Statements SINUS RHYTHM MINIMAL Q WAVES- HIGH LATERAL LEADS BORDERLINE ST-T WAVE ABNORMALITY- DIFFUSE LEADS BASELINE ARTIFACT- I, II, III, AVR, AVL, AVF, V1-V6 BORDERLINE ECG Electronically Signed On 03-04-2021 20:10:55 CAP BLOCKER by Tristin Barrett D.O.
--- NOTE | 2021-03-04 19:04 | PC.NURSE ---
Pt to CT scan via stretcher at this time.
[2021-03-04 19:10] LABS: Basophils Absolute Auto 0.1 K/mm3 (0.0-0.1); Basophils Percent Auto 0.6 % (0.2-1.2); Eosinophils Absolute Auto 0.4 K/mm3 (0-0.3); Eosinophils Percent Auto 3.2 % (0-4.4); Hematocrit 38.9 % (37.0-47.0); Hemoglobin 12.7 g/dL (12.0-15.0); Immature Granulocyte Absolute 0.08 K/mm3 (0.00-0.031); Immature Granulocyte Percent A 0.6 % (0-0.5); Lymphocytes Absolute Auto 2.88 K/mm3 (0.9-3.2); Lymphocytes Percent Auto 20.7 % (18.3-44.2); Mean Corpuscular HGB Conc 32.6 g/dl (32-36); Mean Corpuscular Hemoglobin 29.6 pg (26-34); Mean Corpuscular Volume 90.7 fl (80-100); Mean Platelet Volume 11.1 fl (7.4-10.4); Monocytes Absolute Auto 0.9 K/mm3 (0.1-0.6); Monocytes Percent Auto 6.6 % (2.6-8.5); Neutrophils Absolute Auto 9.5 K/mm3 (1.3-6.7); Neutrophils Percent Auto 68.3 % (45.5-73.1); Platelet Count Result 357 k/mm3 (150-375); Red Blood Count 4.29 M/mm3 (4.2-5.4); Red Cell Distribution Width 13.6 % (11.5-14.5); White Blood Count 13.9 K/mm3 (4.5-10.0)
[2021-03-04 19:15] LABS: Glucose Point of Care 130 mg/dl (65-105)
[2021-03-04 19:20] LABS: Alanine Aminotransferase 18 U/L (4-35); Albumin Level 3.8 g/dL (3.5-5.1); Alkaline Phosphatase 73 U/L (38-126); Anion Gap 8 mmol/L (8-16); Aspartate Amino Transferase 28 U/L (14-36); Bilirubin,Total 0.5 mg/dL (0.2-1.3); Blood Urea Nitrogen 26 mg/dL (7-17); Calcium 12.3 mg/dL (8.4-10.2); Carbon Dioxide 28 mmol/L (22-30); Chloride 104 mmol/L (98-107); Estimated Glomerular Filt Rate 54; Glucose 142 mg/dL (65-110); Potassium 3.5 mmol/L (3.4-5.0); Sodium 140 mmol/L (137-145)
[2021-03-04 19:27] LABS: Add Urine Microscopic? YES; Appearance Urine Cloudy (Clear); Bacteria Urine Trace /hpf; Bilirubin Urine Negative (Negative); Blood Urine Negative (Negative); Calcium Oxalate Crystals Urine Present /hpf; Color Urine Amber (Yellow); Glucose Urine UA Negative (Negative); Ketones Urine Trace mg/dL (Negative); Leukocyte Esterase Ur 1+ LEU/UL (Negative); Mucus Urine Heavy /lpf; Nitrate Urine Negative (Negative); Protein Urine 1+ mg/dL (Negative); RBC Urine 21-50 /hpf (0-2); Specific Grav Ur 1.026 (1.001-1.035); Squamous Epithelial Cell Urine Few /hpf (Few); WBC Urine 21-30 /hpf
[2021-03-04 19:30] LABS: INR 0.9; Prothrombin Time 12.5 Seconds (11.1-14.7)
[2021-03-04 19:31] LABS: Partial Thromboplastin Time 30.3 SECONDS (22.3-36.8)
[2021-03-04] MEDS: SODIUM CHLORIDE 0.9% IV 1,000 ML 999 ML IV CONT (19:50)
--- NOTE | 2021-03-04 20:36 | ED.AMS ---
HPI - Altered Mental Status General Chief Complaint: Altered Mental Status Stated Complaint: AMS, WEAK Time Seen by Provider: 03/04/21 18:28 Source: family Mode of arrival: EMS Limitations: altered mental status History of Present Illness HPI narrative: This is a 75 year old female with history of subacute CVA, hypertension, DM who presents from [facility] for failure to thrive. Patient was discharged from [facility] approximately 10 days after she was found to have an acute stroke. Over the past several days, patient has not wanted to eat or drink. They have been attempting to give her IVF for hydration but patient keeps taking out her IV per her daughter. They had also tried to place an NGT for supplementation today but patient pulled out the tube. [place] [facility] nursing staff states they were given report that patient was sent to ER because they can not get her to eat. EMS reports she was sent for evaluation of recurrent CVA. Patient has history of intermittent confusion. Her daughter states today patient seemed weaker. She was told that patient left tick inspector seemed weak today. Time of change is unknown. PAtient;s daughter states her doctors planned to send her to [place] [facility] on Sunday for gtube placement. They also were discussing discharging her from rehab because she is not cooperative with rehabilitation. Patient is oriented to self. Related Data Home Medications Medication Instructions Recorded Confirmed aspirin 81 mg tablet,delayed 81 mg PO EVERY OTHER DAY 02/12/19 02/23/21 release citalopram 20 mg tablet 20 mg PO DAILY 02/12/19 02/26/21 lisinopril 20 mg tablet 20 mg PO DAILY 02/12/19 02/26/21 metformin 500 mg tablet 500 mg PO EVERY OTHER DAY 02/12/19 02/26/21 metoprolol tartrate 25 mg tablet 25 mg PO DAILY 02/12/19 02/26/21 sodium bicarbonate 650 mg tablet 650 mg PO BID 02/12/19 02/26/21 Ferrex 150 Plus 1 cap PO DAILY 02/20/21 02/26/21 ketoconazole 1 applic TOPICAL BID 02/20/21 02/26/21 triamcinolone acetonide 1 applic TOPICAL BID 02/20/21 02/26/21 Allergies Allergy/AdvReac Type Severity Reaction Status Date / Time latex Allergy Unknown rash Verified 02/20/21 18:07 Review of Systems Review of Systems: ROS unobtainable: Yes unobtainable due to mental status PMFSH Past Medical History Medical History (Updated 03/04/21 @ 22:17 by Kylee Finley MD) Diabetes mellitus History of CVA (cerebrovascular accident) Obstructive sleep apnea (adult) (pediatric) Recurrent falls Family History Family History Father Cerebrovascular accident Mother Heart disease Other Asthma Social History Social History Smoking status: Never smoker Alcohol intake: never Substance use: unknown Substance use type: does not use Spiritual care concerns: No Exam Const: General: alert HENMT: Head: normocephalic and atraumatic Ears: TM's normal bilaterally Face and sinus: normal facial exam, sinuses nontender and face symmetric Eyes: Pupils: Equal, round and reactive pupils present EOM: EOMs intact bilaterally Resp: Effort & Inspection: normal respiratory effort and no retractions Auscultation: clear to auscultation bilaterally Cardio: Rate: regular rate Rhythm: regular rhythm Heart sounds: no murmurs GI: GI Palp: Yes Soft to palpation, No Tenderness to palpation present (GI) and No Guarding due to palpation present (GI) Auscultation: normal bowel sounds Neuro: Other: bilateral arm drift. left tick inspector may be lesser, difficulty to tell. She intermittently follows commands. she moves both legs equally. She is oriented to self. Seems to have some expressive aphasia. Extrem: General: normal to inspection Psych: Affect: normal affect Course Reevaluation(s) Reevaluation #1: On review of patient's last hospitalization and recent rehab stay. She has waxing and waning symptoms. Notes
[2021-03-04 21:23] LABS: Alveolar/Arterial O2 Gradient 27.4 mmHg; Base Excess ABG 2.2 mEq/l (+/-2.0); Device ROOM AIR; Fractional Inspired Oxygen 21 %; HCO3 ABG 26.4 mEq/l (22.0-26.0); Modified Allen's Test Pass; Oxygen Content ABG 16.5 %vol (16.0-22.0); Oxygen Saturation ABG 95.5 % (95.0-100.0); Oxyhemoglobin 93.8 % THb (90.0-100.0); PCO2 ABG 39.8 mmHg (35.0-45.0); PO2 ABG 74.7 mmHg (80.0-100.0); PO2 FiO2 Ratio Arterial Blood 3.56 %; Site Drawn RIGHT RADIAL; Total Hemoglobin 12.5 g/dL (12.0-18.0)
[2021-03-05] VITALS (15 sets, daily range): BP systolic 145–177; BP diastolic 67–97; PULSE 68–99; RESP 18–24; TEMP 36.3–37.1; O2SAT 93–100
[2021-03-05] MEDS: SODIUM CHLORIDE 0.9% IV 1,000 ML 999 ML IV CONT (00:03)
[2021-03-05] MEDS: SODIUM CHLORIDE 0.9% IV 1,000 ML 125 ML IV CONT ×2 (01:02→08:39)
--- NOTE | 2021-03-05 01:26 | ADMGEN ---
This patient, Thuy Glover, was admitted to 2 Medical Room 254-01 @0100. Patient/family oriented to hospital policies and general routines including ID bracelet, bed and alarms, visiting hours, pain management, procedures, bathroom and other care routines, personal items, smoking policy, room service/diet, and visiting hours. Information on how to activate the Rapid Response Team has been discussed. Patient/Family are encouraged to report perceived risks to care and to ask questions if they do not understand what they are told or what they should do.
[2021-03-05 06:33] LABS: Glucose Point of Care 94 mg/dl (65-105)
[2021-03-05 07:05] LABS: Basophils Absolute Auto 0.1 K/mm3 (0.0-0.1); Basophils Percent Auto 0.6 % (0.2-1.2); Eosinophils Absolute Auto 0.3 K/mm3 (0-0.3); Eosinophils Percent Auto 2.5 % (0-4.4); Hematocrit 35.2 % (37.0-47.0); Hemoglobin 11.5 g/dL (12.0-15.0); Immature Granulocyte Absolute 0.07 K/mm3 (0.00-0.031); Immature Granulocyte Percent A 0.5 % (0-0.5); Lymphocytes Absolute Auto 2.52 K/mm3 (0.9-3.2); Lymphocytes Percent Auto 19.8 % (18.3-44.2); Mean Corpuscular HGB Conc 32.7 g/dl (32-36); Mean Corpuscular Hemoglobin 29.9 pg (26-34); Mean Corpuscular Volume 91.4 fl (80-100); Mean Platelet Volume 11.3 fl (7.4-10.4); Neutrophils Absolute Auto 8.7 K/mm3 (1.3-6.7); Neutrophils Percent Auto 68.6 % (45.5-73.1); Platelet Count Result 295 k/mm3 (150-375); Red Blood Count 3.85 M/mm3 (4.2-5.4); Red Cell Distribution Width 13.4 % (11.5-14.5); White Blood Count 12.7 K/mm3 (4.5-10.0)
[2021-03-05 07:17] LABS: Anion Gap 9 mmol/L (8-16); Blood Urea Nitrogen 17 mg/dL (7-17); Calcium 10.9 mg/dL (8.4-10.2); Carbon Dioxide 25 mmol/L (22-30); Chloride 106 mmol/L (98-107); Estimated CRCL calculation 50 ml/min; Estimated Glomerular Filt Rate > 60; Glucose 121 mg/dL (65-110); Potassium 3.2 mmol/L (3.4-5.0); Sodium 140 mmol/L (137-145)
[2021-03-05 08:19] LABS: Glucose Point of Care 108 mg/dl (65-105)
--- NOTE | 2021-03-05 10:01 | PM.IMHP ---
H&P: HPI History of Present Illness Date/Time: 03/05/21 10:01 Chief Complaint: Altered mental status Narrative: 75yo female with hx of hypercalcemia from primary hyperPTH, DM, HTN and recent CVA here for altered mental status and failure to thrive. Lan was admitted here originially on 02/21 for falls and found to have acute infarct involving the right basal ganglia and right internal capsule. She was noted to have hypercalcemia as well and iPTH was 146 consistent with primary hyperparathyroidism. She was transferred to [facility] for rehab. Patient is alert and somewhat oriented but unable to provide a coherent or accurate history. Patient was sent to the emergency room due to a decline in the patient's cognition. There is concern for possible stroke extension. She also is having poor oral intake and has pulled out an NG tube twice. There are no dysphagia concerns. Patient was sent also for possible G-tube placement. Patient is on Plavix and aspirin but has been spitting out her medications. In the ED, patient was hemodynamically [place] [address] CBC otherwise unremarkable. BUN 26 and creatinine 1.0 which is slightly above baseline. Calcium was 12.3. Urine shows 1+ LA, 21-50 red cells, 21-50 white cells but negative nitrates. Urine culture collected. She was given 1 dose of Rocephin. Started on IV fluids. She was admitted for further care. No answer at the daughter's phone listed in the chart. Review of Systems Review of Systems: ROS unobtainable: Yes unobtainable due to mental status PMFSH Past Medical History Medical History Anorexia Diabetes mellitus History of CVA (cerebrovascular accident) Hypercalcemia Obstructive sleep apnea (adult) (pediatric) Recurrent falls Stroke Family History Family History Father Cerebrovascular accident Mother Heart disease Other Asthma Social History Social History Smoking status: Never smoker Alcohol intake: never Substance use: never Substance use type: does not use Spiritual care concerns: No Meds Home Medications and Allergies Home Medications Medication Instructions Recorded Confirmed Type aspirin 81 mg tablet,delayed 81 mg PO EVERY OTHER DAY 02/12/19 03/05/21 History release citalopram 20 mg tablet 20 mg PO DAILY 02/12/19 03/05/21 History lisinopril 20 mg tablet 20 mg PO DAILY 02/12/19 03/05/21 History metformin 500 mg tablet 500 mg PO EVERY OTHER DAY 02/12/19 03/05/21 History metoprolol tartrate 25 mg tablet 25 mg PO DAILY 02/12/19 03/05/21 History sodium bicarbonate 650 mg tablet 650 mg PO BID 02/12/19 03/05/21 History Ferrex 150 Plus 1 cap PO DAILY 02/20/21 03/05/21 History ketoconazole 1 applic TOPICAL BID 02/20/21 03/05/21 History triamcinolone acetonide 1 applic TOPICAL BID 02/20/21 03/05/21 History atorvastatin 40 mg PO DAILY #30 tablet 02/23/21 03/05/21 Rx clopidogrel 75 mg PO QAM #30 tablet 02/23/21 03/05/21 Rx lorazepam 0.5 mg PO PRN PRN #20 tablet 03/08/21 Rx Allergies Allergy/AdvReac Type Severity Reaction Status Date / Time latex Allergy Unknown rash Verified 03/07/21 12:48 Vital Signs Vital Signs - 24 hr 03/04/21 18:09 03/04/21 18:13 03/04/21 18:15 Temperature Pulse Rate 91 87 87 Respiratory Rate 20 17 21 H Blood Pressure 172/68 H 172/68 H Pulse Oximetry 97 100 03/04/21 18:16 03/04/21 18:30 03/04/21 18:31 Temperature Pulse Rate 86 84 82 Respiratory Rate 19 18 14 Blood Pressure 149/62 H Pulse Oximetry 97 98 03/04/21 18:47 03/04/21 18:48 03/04/21 19:33 Temperature Pulse Rate 86 82 75 Respiratory Rate 14 14 22 H Blood Pressure 174/94 H Pulse Oximetry 98 03/04/21 19:45 03/04/21 20:00 03/04/21 20:15 Temperature Pulse Rate 80 84 84 Respiratory Rate 17 17 17 Blood Pressure Pulse Oximetry 03/04/21
--- NOTE | 2021-03-05 10:20 | WPDGICN ---
Assessment and Plan Assessment and plan (1) Acute ischemic stroke: Code(s): I63.9 - Cerebral infarction, unspecified Status: Acute Assessment and Plan: recently diagnosed for which she was on rehab still confused and pulled out iv and also NGT readmitted to medical floor because failure to thrive, she has not been eating much will talk to family if ok to have G-tube (2) Anorexia: Code(s): R63.0 - Anorexia Status: Acute Assessment and Plan: may need G-tube placement for feeding consult form maker plaster (3) Acute encephalopathy: Code(s): G93.40 - Encephalopathy, unspecified Status: Acute Assessment and Plan: from recent stroke, also baseline dementia (4) Hypercalcemia: Code(s): E83.52 - Hypercalcemia Status: Acute (5) Acute dehydration: Code(s): E86.0 - Dehydration Status: Acute (6) Failure to thrive: Status: Acute GI Consult Note Consult date/time: 03/05/21 10:20 Reason for consult: anorexia after recent stroke HPI: Thuy Glover is a 75 year old female with past medical history of DM, HTN who was admitted to [facility] with falls, altered mental status and finally diagnosed with right basal ganglia and right internal capsular stroke (MRI reviewed), evaluated by neurology and she has been on rehab. Patient placed on aspirin, plavix, statin. Patient with dementia prior to CVA. At rehab noted that she was not been eating, then placed NGT for feeding but she pulled it out, still has been disoriented with poor oral intake and finally sent back to ER for further work up, now admitted to hospitalist service. I am called for possible placement of G-tube (this was recommended previously by rehab team to her family). I can not get history from her since she is confused, per notes she was supposed to get G-tube at some point at [facility]. Review of Systems Constitutional: Constitutional: Denies chills Eyes: Eyes: Reports no additional eye complaints ENT: Reports Normal hearing present Cardiovascular: Cardiovascular: Denies chest pain Respiratory: Respiratory: Denies dyspnea Gastrointestinal: Gastrointestinal: Denies abdominal pain Genitourinary: Genitourinary: Denies hematuria Musculoskeletal: Musculoskeletal: Reports no additional musculoskeletal complaints Neurologic: Comments: recent stroke Psychiatric: Psychiatric: Reports anxiety PMFSH Past Medical History Medical History (Updated 03/05/21 @ 10:57 by Antony Odom MD) Anorexia Diabetes mellitus History of CVA (cerebrovascular accident) Hypercalcemia Obstructive sleep apnea (adult) (pediatric) Recurrent falls Family History Family History Father Cerebrovascular accident Mother Heart disease Other Asthma Social History Social History Smoking status: Never smoker Alcohol intake: never Substance use: never Substance use type: does not use Spiritual care concerns: No Meds Home Medications and Allergies Home Medications Medication Instructions Recorded Confirmed Type aspirin 81 mg tablet,delayed 81 mg PO EVERY OTHER DAY 02/12/19 03/05/21 History release citalopram 20 mg tablet 20 mg PO DAILY 02/12/19 03/05/21 History lisinopril 20 mg tablet 20 mg PO DAILY 02/12/19 03/05/21 History metformin 500 mg tablet 500 mg PO EVERY OTHER DAY 02/12/19 03/05/21 History metoprolol tartrate 25 mg tablet 25 mg PO DAILY 02/12/19 03/05/21 History sodium bicarbonate 650 mg tablet 650 mg PO BID 02/12/19 03/05/21 History Ferrex 150 Plus 1 cap PO DAILY 02/20/21 03/05/21 History ketoconazole 1 applic TOPICAL BID 02/20/21 03/05/21 History triamcinolone acetonide 1 applic TOPICAL BID 02/20/21 03/05/21 History atorvastatin 40 mg PO DAILY #30 tablet 02/23/21 03/05/21 Rx clopidogrel 75 mg PO QAM #30 tablet 02/23/21 03/05/21 Rx lorazepam 0.5
[2021-03-05 11:37] LABS: Glucose Point of Care 101 mg/dl (65-105)
[2021-03-05] MEDS: CLOPIDOGREL BISULFATE 75 MG TABLET PO (11:44)
[2021-03-05] MEDS: CITALOPRAM HYDROBROMIDE 20 MG TABLET PO (11:44)
[2021-03-05] MEDS: lisinopriL 20 MG TABLET PO (11:44)
[2021-03-05] MEDS: ENOXAPARIN 40 MG/0.4 ML SYRINGE SUB-Q (11:44)
[2021-03-05] MEDS: ATORVASTATIN 40 MG TABLET PO (11:44)
[2021-03-05] MEDS: POTASSIUM CHLORIDE 20 MEQ TABLET 40 MEQ PO (12:04)
[2021-03-05] MEDS: ASPIRIN 81 MG ENTERIC TABLET PO (12:22)
[2021-03-05 16:45] LABS: Glucose Point of Care 105 mg/dl (65-105)
[2021-03-05] MEDS: SODIUM CHLORIDE 0.9% IV 1,000 ML 70 ML IV CONT (20:39)
[2021-03-05] MEDS: METOPROLOL TARTRATE 12.5 MG TABLET PO (20:40)
[2021-03-05 22:21] LABS: Glucose Point of Care 111 mg/dl (65-105)
[2021-03-06] VITALS (13 sets, daily range): BP systolic 127–178; BP diastolic 55–91; PULSE 62–100; RESP 14–20; TEMP 36.4–36.9; O2SAT 95–100
[2021-03-06 05:48] LABS: Hematocrit 33.6 % (37.0-47.0); Hemoglobin 11.1 g/dL (12.0-15.0); Mean Corpuscular Hemoglobin 29.4 pg (26-34); Mean Corpuscular Volume 89.1 fl (80-100); Mean Platelet Volume 11.4 fl (7.4-10.4); Platelet Count Result 296 k/mm3 (150-375); Red Blood Count 3.77 M/mm3 (4.2-5.4); White Blood Count 12.1 K/mm3 (4.5-10.0)
[2021-03-06 05:57] LABS: Anion Gap 9 mmol/L (8-16); Blood Urea Nitrogen 10 mg/dL (7-17); Calcium 10.5 mg/dL (8.4-10.2); Carbon Dioxide 22 mmol/L (22-30); Chloride 104 mmol/L (98-107); Estimated CRCL calculation 57 ml/min; Estimated Glomerular Filt Rate > 60; Glucose 115 mg/dL (65-110); Potassium 3.5 mmol/L (3.4-5.0); Sodium 135 mmol/L (137-145)
[2021-03-06 07:56] LABS: Glucose Point of Care 105 mg/dl (65-105)
[2021-03-06] MEDS: ATORVASTATIN 40 MG TABLET PO (08:35)
[2021-03-06] MEDS: CLOPIDOGREL BISULFATE 75 MG TABLET PO (08:36)
[2021-03-06] MEDS: lisinopriL 20 MG TABLET PO (08:36)
[2021-03-06] MEDS: ENOXAPARIN 40 MG/0.4 ML SYRINGE SUB-Q (08:36)
[2021-03-06] MEDS: CITALOPRAM HYDROBROMIDE 20 MG TABLET PO (08:36)
--- NOTE | 2021-03-06 10:06 | WPDGIPROGNO ---
Progress Note: A&P Assessment and Plan (1) Failure to thrive: Status: Acute Assessment and Plan: failure to thrive with poor oral intake, family discussed with primary team about G-tube placement, will do it tomorrow if they are agreaable (2) Stroke: Code(s): I63.9 - Cerebral infarction, unspecified Status: Acute Assessment and Plan: recent diagnosis and she has been on rehab since (3) Anorexia: Code(s): R63.0 - Anorexia Status: Acute (4) Altered mental status: Code(s): R41.82 - Altered mental status, unspecified Status: Acute Subjective Date/time seen: 03/06/21 10:06 Interval history: confused, RN reports that she has been hardly eating. Review of Systems Review of Systems: All systems reviewed & are unremarkable except as noted in HPI and below Exam Const: General: comfortable and no acute distress HENMT: General nose exam: Normal nares present Eyes: Sclera: sclerae normal Neck: Neck: supple Resp: Auscultation: clear to auscultation bilaterally Cardio: Rate: regular rate GI: Inspection: non-distended GI Palp: Yes Soft to palpation and No Guarding due to palpation present (GI) Auscultation: normal bowel sounds Skin: General skin exam: normal color Neuro: Speech: normal speech Other: awake but confused Extrem: General: normal to inspection Psych: Affect: Anxious affect present Objective Data Vital Signs Vital Signs: Vital Signs - 24 hr 03/05/21 11:41 03/05/21 12:00 03/05/21 14:45 Temperature 98.0 F Pulse Rate 89 89 85 Respiratory Rate 24 H Blood Pressure 173/67 H 160/84 H Pulse Oximetry 100 03/05/21 16:00 03/05/21 18:15 03/05/21 20:00 Temperature 97.3 F L Pulse Rate 72 71 71 Respiratory Rate 22 H Blood Pressure 173/71 H Pulse Oximetry 93 03/05/21 20:40 03/05/21 22:00 03/06/21 00:00 Temperature 97.5 F L Pulse Rate 98 97 67 Respiratory Rate 20 Blood Pressure 152/97 H Pulse Oximetry 93 03/06/21 04:00 03/06/21 06:00 03/06/21 09:14 Temperature 97.5 F L 97.6 F Pulse Rate 86 100 83 Respiratory Rate 20 16 Blood Pressure 127/91 H 178/68 H Pulse Oximetry 95 100 Intake/Output Intake/Output: Intake & Output 03/03/21 03/04/21 03/05/21 03/06/21 23:59 23:59 23:59 23:59 Intake Total 1050 2290 120 Balance 1050 2290 120 Meds/Results Medications: Active Medications Generic Name Dose Route Start Last Admin Trade Name Freq PRN Reason Stop Dose Admin Aspirin 81 mg 03/05/21 09:00 03/05/21 12:22 Aspirin 81 Mg Enteric Tablet PO 81 mg Q48H RODRIGO Administration Atorvastatin Calcium 40 mg 03/05/21 10:40 03/06/21 08:35 Atorvastatin 40 Mg Tablet PO 40 mg DAILY RODRIGO Administration Citalopram Hydrobromide 20 mg 03/05/21 10:40 03/06/21 08:36 Citalopram Hydrobromide 20 Mg Tablet PO 20 mg DAILY RODRIGO Administration Clopidogrel Bisulfate 75 mg 03/05/21 10:40 03/06/21 08:36 Clopidogrel Bisulfate 75 Mg Tablet PO 75 mg QAM RODRIGO Administration Dextrose 12.5 gm 03/05/21 10:31 Dextrose 50% 25 Gm/50 Ml Syringe IV PUSH PRN PRN Hypoglycemia Protocol Enoxaparin Sodium 40 mg 03/05/21 10:35 03/06/21 08:36 Enoxaparin 40 Mg/0.4 Ml Syringe SUB-Q 40 mg DAILY RODRIGO Administration Glucagon 1 mg 03/05/21 10:31 Glucagon For Inj 1 Mg Vial IM PRN PRN Hypoglycemia Protocol Glucose 15 gm 03/05/21 10:31 Glucose Oral Gel 15 Gm Of Glucse In 37.5 Gm Tube PO PRN PRN Hypoglycemia Protocol Sodium Chloride 1,000 mls @ 70 mls/hr 03/04/21 22:05 03/05/21 20:39 Normal Saline Iv IV CONT 70 mls/hr .[id number] RODRIGO Administration Dextrose 1,000 mls @ 100 mls/hr 03/05/21 10:31 Dextrose 5% 1,000 Ml IVPB PRN PRN Hypoglycemia Protocol Ceftriaxone Sodium/Dextrose 1 gm in 50 mls @ 100 mls/hr 03/05/21 21:00 03/05/21 21:10 Rocephin 1 Gm/D5w 50 Ml IVPB Infused Q24H RODRIGO Infusion
--- NOTE | 2021-03-06 10:15 | PM.IMPN ---
Progress Note: A&P Assessment and Plan (1) Failure to thrive: Status: Acute Assessment and Plan: Secondary to decreased oral intake Plan for PEG tube placement GI consult (2) History of CVA (cerebrovascular accident): Code(s): Z86.73 - Personal history of transient ischemic attack (TIA), and cerebral infarction without residual deficits Status: Acute Assessment and Plan: History of recent acute stroke PT OT eval continue antiplatelet and statin (3) Hypercalcemia: Code(s): E83.52 - Hypercalcemia Status: Acute Assessment and Plan: Associated with acute metabolic encephalopathy Patient shows sign of fluid overload but also she has hypercalcemia give IV Bumex continue IV fluid re-evaluate The rationale of combination of IV fluid and IV diuretic is that the patient still hypercalcemic and she needs IV fluid also she has sign of fluid overload so will give diuresis diuresis will also help the hypercalcemia once hypercalcemia resolve re-evaluate the diuretics and the IV fluid (4) Diabetes mellitus: Code(s): E11.9 - Type 2 diabetes mellitus without complications Status: Acute Assessment and Plan: Insulin sliding scale (5) Obstructive sleep apnea (adult) (pediatric): Code(s): G47.33 - Obstructive sleep apnea (adult) (pediatric) Status: Acute Assessment and Plan: Continue home medication (6) DVT prophylaxis: Code(s): Z29.9 - Encounter for prophylactic measures, unspecified Status: Acute Assessment and Plan: SCD (7) UTI (urinary tract infection): Code(s): N39.0 - Urinary tract infection, site not specified Status: Acute Assessment and Plan: Continue IV Rocephin follow culture results Subjective Date/time seen: 03/06/21 10:15 Interval history: Patient seen and examined 75 years old female with past medical history of hypertension diabetes recent basal ganglia stroke was in rehab patient had altered mental status and decreased oral intake patient had nasogastric tube placed but was pulled out by the patient patient was admitted to the hospital for evaluation and treatment of altered mental status and decreased oral intake patient was found to have UTI hypercalcemia admitted for further evaluation and treatment GI was consulted probable plan for PEG tube placement Patient is poor historian I am seeing the patient for hypercalcemia Exam Narrative: Intermittent confusion Chest no wheeze crackles Abdomen nontender nondistended CVS S1 + S2 Lower extremity positive edema Objective Data Vital Signs Vital Signs: Vital Signs - 24 hr 03/05/21 11:41 03/05/21 12:00 03/05/21 14:45 Temperature 98.0 F Pulse Rate 89 89 85 Respiratory Rate 24 H Blood Pressure 173/67 H 160/84 H Pulse Oximetry 100 03/05/21 16:00 03/05/21 18:15 03/05/21 20:00 Temperature 97.3 F L Pulse Rate 72 71 71 Respiratory Rate 22 H Blood Pressure 173/71 H Pulse Oximetry 93 03/05/21 20:40 03/05/21 22:00 03/06/21 00:00 Temperature 97.5 F L Pulse Rate 98 97 67 Respiratory Rate 20 Blood Pressure 152/97 H Pulse Oximetry 93 03/06/21 04:00 03/06/21 06:00 03/06/21 09:14 Temperature 97.5 F L 97.6 F Pulse Rate 86 100 83 Respiratory Rate 20 16 Blood Pressure 127/91 H 178/68 H Pulse Oximetry 95 100 Intake/Output Intake/Output: Intake & Output 03/03/21 03/04/21 03/05/21 03/06/21 23:59 23:59 23:59 23:59 Intake Total 1050 2290 120 Balance 1050 2290 120 Meds/Results Medications: Active Medications Generic Name Dose Route Start Last Admin Trade Name Freq PRN Reason Stop Dose Admin Aspirin 81 mg 03/05/21 09:00 03/05/21 12:22 Aspirin 81 Mg Enteric Tablet PO 81 mg Q48H RODRIGO Administration Atorvastatin Calcium 40 mg 03/05/21 10:40 03/06/21 08:35 Atorvastatin 40 Mg Tablet PO 40 mg DAILY RODRIGO Administration Bumetanide 1 mg 03/07/21 09:00 Bumetanide Inj 1 Mg/4 Ml V
[2021-03-06] MEDS: METOPROLOL TARTRATE 12.5 MG TABLET PO ×2 (10:18→20:12)
[2021-03-06 12:10] LABS: Glucose Point of Care 131 mg/dl (65-105)
[2021-03-06] MEDS: SODIUM CHLORIDE 0.9% IV 1,000 ML 70 ML IV CONT (13:07)
[2021-03-06 16:59] LABS: Glucose Point of Care 100 mg/dl (65-105)
[2021-03-06 23:57] LABS: Glucose Point of Care 99 mg/dl (65-105)
[2021-03-07] VITALS (18 sets, daily range): BP systolic 126–160; BP diastolic 41–88; PULSE 54–100; RESP 16–20; TEMP 35.9–36.8; O2SAT 94–100
[2021-03-07] MEDS: SODIUM CHLORIDE 0.9% IV 1,000 ML 70 ML IV CONT ×2 (03:49→20:37)
[2021-03-07 07:48] LABS: Glucose Point of Care 103 mg/dl (65-105)
--- NOTE | 2021-03-07 09:14 | PM.IMPN ---
Progress Note: A&P Assessment and Plan (1) Failure to thrive: Status: Acute Assessment and Plan: Secondary to decreased oral intake related to her mental status. She refuses to keep NG tubes in place. GI consulted with plans for PEG tube placement. Appreciate GI input (2) Altered mental status: Code(s): R41.82 - Altered mental status, unspecified Status: Acute Assessment and Plan: Patient with mental status changes but unclear if acute pathology or related to her recent CVAs. She had hypercalcemia but not much improvement with improvement in calcium level (but may be a lag). UTI can also cause acute mental status shcanges but she has been on treatment since admission. TSH was normal last month. Will check B12/folate level. Suspect this may be more of a chronic condition now. (3) History of CVA (cerebrovascular accident): Code(s): Z86.73 - Personal history of transient ischemic attack (TIA), and cerebral infarction without residual deficits Status: Acute Assessment and Plan: Patient was admitted on 02/21/21 for recurrent falls and found to have acute CVA. MR Brain showing acute infarct involving the right basal ganglia and right internal capsule with old infarcts noted in the left basal ganglia and left internal capsule. 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 Continue ASA/Plavix/Lipitor. Continue PT/OT. No evidence of AFib. Okay to stop tele. (4) Hypercalcemia: Code(s): E83.52 - Hypercalcemia Status: Acute Assessment and Plan: Hypercalcemia known and related to primary hyperPTH. Normal valuse runs in the 10-11 range but higher on admission here (12.1) related to dehydration. Maybe playing a part in her mental status changes but calcium down to 10.5 now but no improvement in her mental status. IV fluids started due to her poor oral intake. [place] to be fluid overloaded so IV Bumex started. Repeat BMP (5) UTI (urinary tract infection): Code(s): N39.0 - Urinary tract infection, site not specified Status: Acute Assessment and Plan: UA noted. Possible UTI. Continue IV Rocephin. Follow up on UCx (6) Diabetes mellitus: Code(s): E11.9 - Type 2 diabetes mellitus without complications Status: Acute Assessment and Plan: The patient's blood glucose was reviewed on 03/07 Glucose remains well controlled. Continue AccuCheks covering with sliding scale. Hypoglycemia protocol available as needed. Continue to monitor (7) Obstructive sleep apnea (adult) (pediatric): Code(s): G47.33 - Obstructive sleep apnea (adult) (pediatric) Status: Acute Assessment and Plan: noncompliant. (8) DVT prophylaxis: Code(s): Z29.9 - Encounter for prophylactic measures, unspecified Status: Acute Assessment and Plan: Lovenox - on hold now for possible GTube placement Subjective Date/time seen: 03/07/21 09:14 Interval history: 75yo female with history of HTN, DM and recent basal ganglia stroke here for AMS and FTT. Resuming care. Chart reviewed. Patient is alert but her speech is nonsensical. Thus history is not able to be obtained at this time. Review of Systems Review of Systems: ROS unobtainable: Yes unobtainable due to mental status Exam Narrative: AF 97.2 156/72 81 18 98% ra Gen - NARD Chest - lungs are clear anteriorly CV -RRR. S1-S2. Telemetry showing no significant dysrhythmias. Abd -soft. Nondistended. Positive bowel sounds. Mild diffuse tenderness without guarding. No focal persistent tenderness noted Ext - no pedal edema. Neuro - alert but confused. Speech is nonsensical. Psych - anxious Skin - warm and dry. Objective Data Vital Signs Vital Signs: Vital Signs - 24 hr 03/06/21 10:18 03/06/21 12:00 03/06/21 12:10 Temperature 97.7 F Pulse Rate 70 62 64 Respiratory Rate 16 Blood Pressure 150/60 H Pulse Ox
[2021-03-07] MEDS: lisinopriL 20 MG TABLET PO (09:18)
[2021-03-07] MEDS: BUMETANIDE INJ 1 MG/4 ML VIAL IV PUSH (09:18)
[2021-03-07] MEDS: METOPROLOL TARTRATE 12.5 MG TABLET PO ×2 (09:18→20:36)
[2021-03-07 10:41] LABS: Anion Gap 8 mmol/L (8-16); Blood Urea Nitrogen 8 mg/dL (7-17); Calcium 11.2 mg/dL (8.4-10.2); Carbon Dioxide 22 mmol/L (22-30); Chloride 101 mmol/L (98-107); Estimated CRCL calculation 57 ml/min; Estimated Glomerular Filt Rate > 60; Glucose 116 mg/dL (65-110); Potassium 3.4 mmol/L (3.4-5.0); Sodium 131 mmol/L (137-145)
[2021-03-07 11:32] LABS: Glucose Point of Care 109 mg/dl (65-105)
[2021-03-07 11:45] LABS: Folic Acid 6.7 ng/mL (2.76->20); Vitamin B12 > 1000.0 pg/mL (239-931)
--- NOTE | 2021-03-07 12:35 | PC.NURSE ---
To GI lab per charly. IV saline locked. Report given to TAVON Ashley.
[2021-03-07] MEDS: LACTATED RINGERS 1,000 ML 150 ML IV CONT (12:54)
[2021-03-07 13:00] LABS: Glucose Point of Care 102 mg/dl (65-105)
--- NOTE | 2021-03-07 13:23 | WPDANESEPPF ---
Anes - Initial Pre Proc Eval Procedure: Operation Date: 03/07/21 13:45 Proposed Procedures p Esophagogastroduodenoscopy - Antony Odom MD s Percutaneous Endoscopic Gastrostomy Placement - Antony Odom MD Date/Time: 03/07/21 13:23 Surgeon: Danna Workman DO Pre Op Diagnosis: Acute dehydration,hypercalcemia,Subacute CVA Patient Data Age: 75 Gender: F Height: 1.57 m Weight: 74.6 kg Last Vital Signs Temp 97.3 F L 03/07/21 12:51 Pulse 70 03/07/21 12:51 Resp 16 03/07/21 12:51 BP 154/73 H 03/07/21 12:51 Pulse Ox 96 03/07/21 12:51 Allergies Allergy/AdvReac Type Severity Reaction Status Date / Time latex Allergy Unknown rash Verified 03/07/21 12:48 Home Medications Medication Instructions Recorded Confirmed Type aspirin 81 mg tablet,delayed 81 mg PO EVERY OTHER DAY 02/12/19 03/05/21 History release citalopram 20 mg tablet 20 mg PO DAILY 02/12/19 03/05/21 History lisinopril 20 mg tablet 20 mg PO DAILY 02/12/19 03/05/21 History metformin 500 mg tablet 500 mg PO EVERY OTHER DAY 02/12/19 03/05/21 History metoprolol tartrate 25 mg tablet 25 mg PO DAILY 02/12/19 03/05/21 History sodium bicarbonate 650 mg tablet 650 mg PO BID 02/12/19 03/05/21 History Ferrex 150 Plus 1 cap PO DAILY 02/20/21 03/05/21 History ketoconazole 1 applic TOPICAL BID 02/20/21 03/05/21 History triamcinolone acetonide 1 applic TOPICAL BID 02/20/21 03/05/21 History atorvastatin 40 mg PO DAILY #30 tablet 02/23/21 03/05/21 Rx clopidogrel 75 mg PO QAM #30 tablet 02/23/21 03/05/21 Rx lorazepam 0.5 mg PO PRN PRN #20 tablet 02/23/21 03/05/21 Rx Laboratory Tests 03/06/21 03/06/21 03/07/21 16:20 20:12 07:40 Sodium Potassium Chloride Carbon Dioxide Anion Gap BUN Creatinine Estim Creat Clear Calc Estimated GFR Glucose POC Capillary Glucose 100 mg/dl mg/dl 99 mg/dl mg/dl 103 mg/dl mg/dl (65-105) (65-105) (65-105) Calcium Vitamin B12 Folate RPR 03/07/21 03/07/21 03/07/21 09:59 09:59 11:24 Sodium 131 mmol/L L mmol/L (137-145) Potassium 3.4 mmol/L mmol/L (3.4-5.0) Chloride 101 mmol/L mmol/L (98-107) Carbon Dioxide 22 mmol/L mmol/L (22-30) Anion Gap 8 mmol/L mmol/L (8-16) BUN 8 mg/dL mg/dL (7-17) Creatinine 0.70 mg/dL mg/dL (0.7-1.0) Estim Creat Clear Calc 57 ml/min ml/min Estimated GFR > 60 (59 - ) Glucose 116 mg/dL H mg/dL (65-110) POC Capillary Glucose 109 mg/dl H mg/dl (65-105) Calcium 11.2 mg/dL H mg/dL (8.4-10.2) Vitamin B12 > 1000.0 pg/mL H pg/mL (239-931) Folate 6.7 ng/mL ng/mL (2.76->20) RPR Pending 03/07/21 12:58 Sodium Potassium Chloride Carbon Dioxide Anion Gap BUN Creatinine Estim Creat Clear Calc Estimated GFR Glucose POC Capillary Glucose 102 mg/dl mg/dl (65-105) Calcium Vitamin B12 Folate RPR Patient hx anesthesia problems: none Family hx anesthesia problems: none Results Review: All pre-operative results and documents have been reviewed as part of the pre-operative evaluation. [facility] Past Medical History Medical History Anorexia Diabetes mellitus History of CVA (cerebrovascular accident) Hypercalcemia Obstructive sleep apnea (adult) (pediatric) Recurrent falls Stroke Family History Family History Father Cerebrovascular accident Mother Heart disease Other Asthma Social History Social History Smoking status: Never smoker Alcohol intake: never Substance u
[2021-03-07 13:28] LABS: Rapid Plasma Reagin Non-Reactive (NonReactive)
[2021-03-07 14:24] LABS: Glucose Point of Care 100 mg/dl (65-105)
--- NOTE | 2021-03-07 15:00 | PC.NURSE ---
Patient returned from GI lab. Received report from TAVON Ashley.
[2021-03-07 16:43] LABS: Glucose Point of Care 133 mg/dl (65-105)
[2021-03-07] MEDS: PROMETHAZINE HCL 25 MG TABLET PO (16:43)
[2021-03-07] MEDS: PANTOPRAZOLE 40 MG TABLET PO (20:36)
[2021-03-07 21:10] LABS: Glucose Point of Care 113 mg/dl (65-105)
[2021-03-08] MEDS: LORazepam (*CRX) 0.5 MG TABLET PO (01:31)
[2021-03-08 03:55] VITALS: BP 148/67; PULSE 94; RESP 20; TEMP 36.8; O2SAT 99
[2021-03-08 07:47] LABS: Glucose Point of Care 124 mg/dl (65-105)
[2021-03-08] MEDS: BUMETANIDE INJ 1 MG/4 ML VIAL IV PUSH (07:59)
[2021-03-08 08:00] VITALS: PULSE 80
[2021-03-08] MEDS: METOPROLOL TARTRATE 12.5 MG TABLET PO (08:00)
[2021-03-08] MEDS: CITALOPRAM HYDROBROMIDE 20 MG TABLET PO (08:00)
[2021-03-08] MEDS: ENOXAPARIN 40 MG/0.4 ML SYRINGE SUB-Q (08:00)
[2021-03-08] MEDS: PANTOPRAZOLE 40 MG TABLET PO (08:00)
[2021-03-08] MEDS: lisinopriL 20 MG TABLET PO (08:00)
[2021-03-08] MEDS: ATORVASTATIN 40 MG TABLET PO (08:00)
[2021-03-08 09:14] LABS: Hematocrit 33.1 % (37.0-47.0); Mean Corpuscular HGB Conc 33.2 g/dl (32-36); Mean Corpuscular Hemoglobin 29.2 pg (26-34); Mean Corpuscular Volume 87.8 fl (80-100); Mean Platelet Volume 11.6 fl (7.4-10.4); Platelet Count Result 349 k/mm3 (150-375); Red Blood Count 3.77 M/mm3 (4.2-5.4); Red Cell Distribution Width 13.2 % (11.5-14.5); White Blood Count 12.4 K/mm3 (4.5-10.0)
[2021-03-08 09:26] LABS: Anion Gap 9 mmol/L (8-16); Blood Urea Nitrogen 12 mg/dL (7-17); Calcium 11.1 mg/dL (8.4-10.2); Carbon Dioxide 22 mmol/L (22-30); Chloride 102 mmol/L (98-107); Estimated CRCL calculation 45 ml/min; Estimated Glomerular Filt Rate > 60; Glucose 141 mg/dL (65-110); Potassium 3.1 mmol/L (3.4-5.0); Sodium 133 mmol/L (137-145)
--- NOTE | 2021-03-08 11:39 | PCNFU ---
Nutrition Follow-Up Complete: Swallowing Difficulties as related to CVA as evidenced by PEG placement. Goal: Meet estimated nutritional needs Patient is progressing towards goal we will continue current goal. Pt current nutrition is DBCC with tube feedings of Glucerna 1.2 at 40 ml/hr goal rate at 60 ml/hr over 22 hours. Last recorded weight is 74.6 kg. Bowel Motility:No BM reported today. Labs Reviewed:Glu 141, K 3.1,Hct 33.1,Hgb 11.0 Meds Noted:Prinivil, Ativan,Rocephin, Lovenox, Lopressor, Protonix, Bumex, Prinivil, Lipitor, Celexa Skin:WNL Additional Notes: Nutrition follow up. Patient had PEG placed yesterday. Tube feedings of Glucerna 1.2 currently at 40 ml/hr with plans for goal rate today of 60 ml/hr, providing 1584 kcals/87 gms protein/1063 ml fluid. Free water flush 30 ml q 4 hours. Patient is also able to take po intake, today was bites of pancakes fed to patient by nursing. Agree with diet orders. Monitoring: Will monitor every Sunday and Sunday.
[2021-03-08] MEDS: POTASSIUM CHLORIDE 20 MEQ PACKET (FOR LIQUID) 40 MEQ FEED TUBE (11:40)
[2021-03-08 11:56] LABS: Glucose Point of Care 145 mg/dl (65-105)
--- NOTE | 2021-03-08 12:36 | PM.DS ---
DS: Admitting Diagnosis Discharge Date 03/08/21 Admitting Diagnosis Failure to thrive and altered mental status DS: Discharge Diagnosis Discharge Diagnosis (1) Failure to thrive: Status: Acute Assessment and Plan: Secondary to decreased oral intake related to her mental status. She refused to keep NG tubes in place at the facility and sent in for GTube placement. GI was consulted and patient underwent EGD with GTube placement 03/07/21. EGD showing gastritis; she was started on PPI. PEG tube placed without issue. Tube feedings started and she tolerated this well. Appreciate GI input. A (2) Altered mental status: Code(s): R41.82 - Altered mental status, unspecified Status: Acute Assessment and Plan: Patient with mental status changes but unclear if acute pathology or related to her recent CVAs. She had hypercalcemia but not much improvement in her mental status with improvement in calcium level. TSH was normal last month; B12/folate normal and RPR negative. UCx not consistent with infection. Suspect her mental status may be more of a chronic condition now. (3) History of CVA (cerebrovascular accident): Code(s): Z86.73 - Personal history of transient ischemic attack (TIA), and cerebral infarction without residual deficits Status: Acute Assessment and Plan: Patient was admitted on 02/21/21 for recurrent falls and found to have acute CVA. MR Brain showing acute infarct involving the right basal ganglia and right internal capsule with old infarcts noted in the left basal ganglia and left internal capsule. 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 We continued ASA/Lipitor; we held Plavix for the GTube placement. She worked with PT/OT. No evidence of AFib by tele. (4) Hypercalcemia: Code(s): E83.52 - Hypercalcemia Status: Acute Assessment and Plan: Hypercalcemia known and related to primary hyperPTH. Normal valuse runs in the 10-11 range but higher on admission here (12.1) related to dehydration. Maybe playing a part in her mental status changes but calcium down to 10.5 now but no improvement in her mental status. Continue free water flushes. (5) UTI (urinary tract infection): Code(s): N39.0 - Urinary tract infection, site not specified Status: Acute Assessment and Plan: UA noted. UCx growing 100K of non-uropathogenic gram positive organisms (called lab and identified as Strept viridans) She received Rocephin . Continue IV Rocephin x 4 doses which should cover this if it was a true infection but overall feel unlikely this was UTI (6) Diabetes mellitus: Code(s): E11.9 - Type 2 diabetes mellitus without complications Status: Acute Assessment and Plan: The patient's blood glucose was monitored closely with AccuCheks covering with sliding scale. Hypoglycemia protocol was available as needed. (7) Obstructive sleep apnea (adult) (pediatric): Code(s): G47.33 - Obstructive sleep apnea (adult) (pediatric) Status: Acute Assessment and Plan: noncompliant. DS: Summary Hospital Course Reason for hospitalization: 75yo female with history of HTN, DM and recent basal ganglia stroke here for AMS and FTT. Please see H&P for details Hospital Course: Please see above for details of hospital course Status at Discharge Cognitive/behavioral status at discharge: stable Time Spent with Patient Time attestation: Total time spent providing and/or coordinating discharge services: 35 minuts Time spent: Greater than 30 minutes Exam Narrative: AF 98.2 148/67 80 20 99% ra Gen - NARD Chest - lungs are clear anteriorly CV -RRR. S1-S2. Abd -soft. ND. GTube dressing clean and dry. No lower abd tenderness. Ext - no pedal edema. Neuro - alert but confused. Speech is nonsensical. Skin - warm and dry. DS: Data Data Completed and Pending Labs on da
--- NOTE | 2021-03-08 13:56 | WPDGIPROGNO ---
Progress Note: A&P Assessment and Plan (1) Anorexia: Code(s): R63.0 - Anorexia Status: Acute Assessment and Plan: she was hardly eating after stroke and that was the main reason why G-tube was placed, tolerating tube feeding and she still can have food by mouth as pleasure will follow from afar, no objections to discharge (2) Stroke: Code(s): I63.9 - Cerebral infarction, unspecified Status: Acute Assessment and Plan: continue with rehabilitation ok to resume plavix in 2 days (3) Acute encephalopathy: Code(s): G93.40 - Encephalopathy, unspecified Status: Acute Subjective Date/time seen: 03/08/21 13:56 Interval history: g-tube placed yesterday and tolerating tube feeding, also eating but only small bites Review of Systems Review of Systems: All systems reviewed & are unremarkable except as noted in HPI and below Exam Const: General: comfortable and no acute distress HENMT: General nose exam: Normal nares present Eyes: Sclera: sclerae normal Neck: Neck: supple Resp: Auscultation: clear to auscultation bilaterally Cardio: Rate: regular rate GI: GI Palp: Yes Soft to palpation and No Guarding due to palpation present (GI) Auscultation: normal bowel sounds Other: abdominal binder in place, tube feeding running at 50 ml/h, G-tube looks ok Skin: General skin exam: no rashes or lesions noted Neuro: Speech: normal speech Other: awake and alert but confused Extrem: General: normal to inspection Psych: Affect: Anxious affect present Objective Data Vital Signs Vital Signs: Vital Signs - 24 hr 03/07/21 14:05 03/07/21 14:15 03/07/21 14:25 Temperature Pulse Rate 70 66 80 Respiratory Rate 20 20 20 Blood Pressure 136/60 132/54 L 148/63 H Pulse Oximetry 100 99 100 03/07/21 15:05 03/07/21 15:25 03/07/21 16:03 Temperature 97.2 F L 96.9 F L 97.6 F Pulse Rate 54 L 60 60 Respiratory Rate 18 18 18 Blood Pressure 126/60 132/41 L 155/76 H Pulse Oximetry 100 100 100 03/07/21 18:07 03/07/21 20:00 03/07/21 20:27 Temperature 97.8 F 97.7 F Pulse Rate 78 100 100 Respiratory Rate 16 20 20 Blood Pressure 146/64 H 160/88 H Pulse Oximetry 99 99 99 03/07/21 20:36 03/08/21 03:55 03/08/21 08:00 Temperature 98.2 F Pulse Rate 100 94 80 Respiratory Rate 20 Blood Pressure 148/67 H Pulse Oximetry 99 Intake/Output Intake/Output: Intake & Output 03/05/21 03/06/21 03/07/21 03/08/21 23:59 23:59 23:59 23:59 Intake Total 2290 1481 2370 900 Output Total 100 Balance 2290 1481 2370 800 Meds/Results Medications: Active Medications Generic Name Dose Route Start Last Admin Trade Name Freq PRN Reason Stop Dose Admin Acetaminophen 650 mg 03/07/21 15:49 Acetaminophen 325 Mg Tablet PO Q6H PRN Mild Pain (1-3) or Fever Aspirin 81 mg 03/05/21 09:00 03/07/21 09:14 Aspirin 81 Mg Enteric Tablet PO Not Given Q48H RODRIGO Atorvastatin Calcium 40 mg 03/05/21 10:40 03/08/21 08:00 Atorvastatin 40 Mg Tablet PO 40 mg DAILY RODRIGO Administration Bumetanide 1 mg 03/07/21 09:00 03/08/21 07:59 Bumetanide Inj 1 Mg/4 Ml Vial IV PUSH 1 mg QAM RODRIGO Administration Citalopram Hydrobromide 20 mg 03/05/21 10:40 03/08/21 08:00 Citalopram Hydrobromide 20 Mg Tablet PO 20 mg DAILY RODRIGO Administration Dextrose 12.5 gm 03/05/21 10:31 Dextrose 50% 25 Gm/50 Ml Syringe IV PUSH PRN PRN Hypoglycemia Protocol Enoxaparin Sodium 40 mg 03/05/21 10:35 03/08/21 08:00 Enoxaparin 40 Mg/0.4 Ml Syringe SUB-Q 40 mg DAILY RODRIGO Administration Glucagon 1 mg 03/05/21 10:31 Glucagon For Inj 1 Mg Vial IM PRN PRN Hypoglycemia Protocol Glucose 15 gm 03/05/21 10:31 Glucose Oral Gel 15 Gm Of Glucse In 37.5 Gm Tube PO PRN PRN Hypoglycemia Protocol Hydralazine HCl 10 mg 03/06/21 10:11 Hydralazine Hcl 20 Mg/Ml Vial IV PUSH Q6H PRN Hypertension Dex
[2021-03-08 14:00] VITALS: BP 164/75; PULSE 76; RESP 22; TEMP 36.4; O2SAT 98
[2021-03-08 15:31] LABS: EDCOVIDSCREEN Negative (Negative)
--- NOTE | 2021-03-08 15:39 | PC.NURSE ---
On 03/08/21, the student, [ Gege Cruz ], provided care and completed [facility] documentation on this patient. I have reviewed the student's documentation and agree with the findings.
[2021-03-08 16:38] LABS: Glucose Point of Care 155 mg/dl (65-105)
== END 2021-03-08 16:50 | DRG 641 ==
LOC: ANHED 22:17 → ANH2MED 23:31
PROVIDERS: Internal Medicine Gastroenterology; Admitting Provider Internal Medicine; Emergency Provider General Practice; PCP Internal Medicine; Visit Provider Internal Medicine
PROC: 0DJ08ZZ Inspection of Upper Intestinal Tract, Via Natural or Artificial Opening Endoscopic (ICD-10-PCS; CPT 43235; principal; 2021-03-07 13:45)
PROC: 0DH63UZ Insertion of Feeding Device into Stomach, Percutaneous Approach (ICD-10-PCS; CPT 43246; 2021-03-07 13:45)
DX: R62.7 Adult failure to thrive (principal); K29.70 Gastritis, unspecified, without bleeding; F03.90 Unspecified dementia, unspecified severity, without behavioral disturbance, psychotic disturbance, mood disturbance, and anxiety; R41.82 Altered mental status, unspecified; R63.0 Anorexia; E86.0 Dehydration; Z20.822 Contact with and (suspected) exposure to COVID-19; E83.52 Hypercalcemia; G47.33 Obstructive sleep apnea (adult) (pediatric); I10 Essential (primary) hypertension; E11.9 Type 2 diabetes mellitus without complications; R29.6 Repeated falls; Z79.82 Long term (current) use of aspirin; Z79.899 Other long term (current) drug therapy; Z86.73 Personal history of transient ischemic attack (TIA), and cerebral infarction without residual deficits; Z91.19 Patient's noncompliance with other medical treatment and regimen
CPT/HCPCS: 36415; 36600; 43246; 70450; 71045; 80048; 80053; 81001; 82607; 82746; 82805; 82948; 85025; 85027; 85610; 85730; 86592; 87086; 87088; 87426; 93005; 96361; 96365; 99285; A9270; C9803; G0378; J0690; J0696; J1650; J2704; J7030; J7120